=== PATIENT | female | born 1950 | race African-American/Black ===

== ENCOUNTER → 2017-03-13 | Outpatient (CLI) | payer OTHER ==
[2015-03-14 17:28] VITALS: BP 158/75
[~2017-03-13] MED LIST: AMLO5TAB4 PO; GLIM2TAB2 PO; VALS1TAB14 PO
--- NOTE | 2017-03-13 12:14 | KCIC ---
Bilateral digital screening mammograms: Reason for examination: Routine screening. Comparison is made to previous studies dated 06/08/2015 and 12/25/2011. Interpretation was made with the benefit of CAD. The skin and nipples show no abnormalities. No abnormal axillary lymph nodes are seen. The breast parenchyma shows scattered fibroglandular density. (Breast density: Category B.) There are no dominant masses, suspicious calcifications or architectural distortions. Impression: No evidence of malignancy. Recommend routine screening. BI-RADS Category 1: Negative. "Our facility is accredited by the [employer] Mammography Program." This patient's information has been entered into a reminder system for the patient to be notified with the results of her examination and a target date for the next mammogram. Electronically signed by: Lizeth Berman MD (03/13/2017 12:11 PM) [facility]
== END | disposition home or self-care (01) ==
LOC: KCIC MAMMO 10:17
PROVIDERS: ATTEND Internal Medicine
DX: Z12.31 Encounter for screening mammogram for malignant neoplasm of breast (principal)
CPT/HCPCS: G0202; 77067

== ENCOUNTER 2019-03-05 17:58 | Emergency (ER) | payer OTHER ==
[~2019-03-05] VITALS: Ht 160 cm; Wt 81.6 kg
[2019-03-05 18:15] VITALS: BP 176/74
--- NOTE | 2019-03-05 18:46 | PHYS DOC ---
Past Medical History Past Medical History: Diabetes-Type II, Hypertension Past Surgical History: Appendectomy, Cholecystectomy Alcohol Use: Rarely Drug Use: None Adult General Chief Complaint Chief Complaint: OTHER COMPLAINTS HPI HPI Patient is a 69 year old female that presents with blisters/rash on her hand and feet it's has been ongoing for week. The patient states this happened 5 years ago and never did figure out exactly what it was. The patient describes the rash as itchy. Denies any pain. Has been using creams that were giving to her last time she was here and they're not helping. Review of Systems Review of Systems Constitutional: Denies fever or chills [] Eyes: Denies change in visual acuity, redness, or eye pain [] HENT: Denies nasal congestion or sore throat [] Respiratory: Denies cough or shortness of breath [] Cardiovascular: No additional information not addressed in HPI [] GI: Denies abdominal pain, nausea, vomiting, bloody stools or diarrhea [] : Denies dysuria or hematuria [] Musculoskeletal: Denies back pain or joint pain [] Integument: Reports rash on hands and feet with small blisters. Neurologic: Denies headache, focal weakness or sensory changes [] Endocrine: Denies polyuria or polydipsia [] Complete systems were reviewed and found to be within normal limits, except as documented in this note. Allergies Allergies Allergies Coded Allergies Type Severity Reaction Last Updated Verified Sulfa (Sulfonamide Antibiotics) Allergy Intermediate RASH 04/18/14 No amoxicillin Allergy Intermediate RASH 04/18/14 No Physical Exam Physical Exam Constitutional: Well developed, well nourished, no acute distress, non-toxic appearance. [] HENT: Normocephalic, atraumatic, bilateral external ears normal, oropharynx moist, no oral exudates, nose normal. [] Eyes: PERRLA, EOMI, conjunctiva normal, no discharge. [] Neck: Normal range of motion, no tenderness, supple, no stridor. [] Cardiovascular:Heart rate regular rhythm, no murmur [] Lungs & Thorax: Bilateral breath sounds clear to auscultation [] Abdomen: Bowel sounds normal, soft, no tenderness, no masses, no pulsatile masses. [] Skin: Has macular rash on feet and hands with some blistering. Back: No tenderness, no CVA tenderness. [] Extremities: No tenderness, no cyanosis, no clubbing, ROM intact, no edema. [] Neurologic: Alert and oriented X 3, normal motor function, normal sensory function, no focal deficits noted. [] Psychologic: Affect normal, judgement normal, mood normal. [] Current Patient Data Vital Signs Vital Signs Date Time Temp Pulse Resp B/P (MAP) Pulse Ox O2 Delivery O2 Flow Rate FiO2 03/05/19 18:15 98.2 79 16 176/74 (108) 99 Room Air 98.2 EKG EKG [] Radiology/Procedures Radiology/Procedures [] Course & Med Decision Making Course & Med Decision Making Pertinent Labs and Imaging studies reviewed. (See chart for details) Unsure what this rash is. Will try Decadron and Bactroban and have follow up with Derm. Duque Disclaimer Dunia Disclaimer This electronic medical record was generated, in whole or in part, using a voice recognition dictation system. Departure Departure Impression: Primary Impression: Rash Disposition: 01 HOME, SELF-CARE Condition: STABLE Referrals: MYRA GUALLPA MD (PCP) Patient Instructions: Rash Additional Instructions: Thank you for visiting [facility]. We appreciate you trusting us with your care. If any additional problems come up don't hesitate to return to visit us. Please follow up with your primary care provider so they can plan additional care if needed and know about the problem that you had. If symptoms worsen come back to the Emergency Department. Any concerning symptoms that start such as chest pain, shortness of air, weakness or numbness on one side of the body, running high fevers or any other concerning symptoms return to the ER. Please use Bactroban and see if this helps. Follow up with Dermatology. Scripts Mupirocin (MUPIROCIN OINTMENT) 22 Gm Oint...g. 1 ANNA TP TID for WOUND CARE, #1 TUBE Prov: MYRA CASSIDY APRN 03/05/19 MRYA CASSIDY APRN Mar 05, 2019 18:46
[2019-03-05] MEDS ORDERED: DEXAMETHASONE 4 MG TABLET PO STA (19:28)
[2019-03-05] MEDS ORDERED: MUPI22OI2 TP (19:30)
== END 2019-03-05 19:40 | disposition home or self-care (01) ==
LOC: ER 17:58
DX: S60.522A Blister (nonthermal) of left hand, initial encounter (principal); S60.521A Blister (nonthermal) of right hand, initial encounter; S90.822A Blister (nonthermal), left foot, initial encounter; S90.821A Blister (nonthermal), right foot, initial encounter; E11.9 Type 2 diabetes mellitus without complications; I10 Essential (primary) hypertension; Z90.89 Acquired absence of other organs; Z90.49 Acquired absence of other specified parts of digestive tract; Z88.2 Allergy status to sulfonamides; Z88.1 Allergy status to other antibiotic agents; X58.XXXA Exposure to other specified factors, initial encounter; Y93.89 Activity, other specified; Y92.89 Other specified places as the place of occurrence of the external cause; Y99.8 Other external cause status
CPT/HCPCS: 99283; J8540

== ENCOUNTER 2019-04-27 12:39 | Emergency (ER) | payer OTHER ==
[~2019-04-27] VITALS: Ht 165.1 cm; Wt 81.6 kg
[~2019-04-27 12:39] MED LIST changes: -GLIM2TAB2 PO; +GLIM2TAB3 PO; +MUPI22OI2 TP
[2019-04-27 13:00] VITALS: BP 148/71
[2019-04-27] MEDS ORDERED: ACETAMINOPHEN 325 MG TABLET. PO ONE (13:15)
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
== END 2019-04-27 14:01 | disposition home or self-care (01) ==
LOC: ER 12:39
DX: R51 Headache (principal); E11.9 Type 2 diabetes mellitus without complications; I10 Essential (primary) hypertension; Z88.2 Allergy status to sulfonamides; Z88.1 Allergy status to other antibiotic agents; V59.69XA Unspecified occupant of pick-up truck or van injured in collision with other motor vehicles in traffic accident, initial encounter; Y93.89 Activity, other specified; Y92.488 Other paved roadways as the place of occurrence of the external cause; Y99.8 Other external cause status
CPT/HCPCS: 70450; 99284-25

== ENCOUNTER 2019-08-12 23:35 | Emergency (ER) | payer OTHER ==
[~2019-08-12 23:35] MED LIST changes: -GLIM2TAB3 PO; +GLIM2TAB7 PO
[2019-08-12 23:54] VITALS: BP 150/72
[2019-08-13] MEDS ORDERED: METH4TAB2 PO (00:41)
[2019-08-13] MEDS ORDERED: DICL100G18 TP (00:41)
[2019-08-13] MEDS ORDERED: CYCL10TA2 PO (00:41)
[2019-08-13] MEDS ORDERED: HYDR-3164 PO (00:41)
--- NOTE | 2019-08-13 00:41 | PHYS DOC ---
Past Medical History Past Medical History: Diabetes-Type II, High Cholesterol, Hypertension Past Surgical History: Appendectomy, Cholecystectomy Alcohol Use: Rarely Drug Use: None Adult General Chief Complaint Chief Complaint: Neck Pain HPI HPI Patient is a 69 year old female presenting to the ED today complaining of 10 out of 10 left lateral neck pain that began on Thursday this week. Patient reports pain began on the right hip the day before, she reports she went to bed and slept wrong and woke up the next morning with left neck pain. She reports the pain is worse on rotation of the neck to the left side, she described the pain as "crocked neck". She states she's been using heating pad, Aleve, naproxen, Tylenol, no relief. Review of Systems Review of Systems Constitutional: Denies fever or chills [] Eyes: Denies change in visual acuity, redness, or eye pain [] HENT: Denies nasal congestion or sore throat [] Respiratory: Denies cough or shortness of breath [] Cardiovascular: No additional information not addressed in HPI [] GI: Denies abdominal pain, nausea, vomiting, bloody stools or diarrhea [] : Denies dysuria or hematuria [] Musculoskeletal: Reports left lateral neck pain. Denies back pain or joint pain [] Integument: Denies rash or skin lesions [] Neurologic: Denies headache, focal weakness or sensory changes [] All other systems were reviewed and found to be within normal limits, except as documented in this note. Allergies Allergies Allergies Coded Allergies Type Severity Reaction Last Updated Verified Sulfa (Sulfonamide Antibiotics) Allergy Intermediate RASH 04/18/14 No amoxicillin Allergy Intermediate RASH 04/18/14 No Physical Exam Physical Exam Constitutional: Well developed, well nourished, no acute distress, non-toxic appearance. [] HENT: Normocephalic, atraumatic, bilateral external ears normal, oropharynx moist, no oral exudates, nose normal. [] Eyes: PERRLA, EOMI, conjunctiva normal, no discharge. [] Neck: Cervical spine with no obvious deformity. Limited range of motion on rotation of the neck to the left side and slightly Limited range of motion to the right side of the neck. Slight paraspinal muscle tenderness to the left lateral cervical spine, no midline cervical spine tenderness. Supple, no stridor. [] Cardiovascular:Heart rate regular rhythm, no murmur [] Lungs & Thorax: Bilateral breath sounds clear to auscultation [] Abdomen: Bowel sounds normal, soft, no tenderness, no masses, no pulsatile masses. [] Skin: Warm, dry, no erythema, no rash. [] Back: No tenderness, no CVA tenderness. [] Extremities: No tenderness, no cyanosis, no clubbing, ROM intact, no edema. [] Neurologic: Alert and oriented X 3, normal motor function, normal sensory function, no focal deficits noted. [] Psychologic: Affect normal, judgement normal, mood normal. [] Current Patient Data Vital Signs Vital Signs Date Time Temp Pulse Resp B/P (MAP) Pulse Ox O2 Delivery O2 Flow Rate FiO2 08/12/19 23:54 98.3 99 20 150/72 (98) 100 Room Air 98.3 EKG EKG [] Radiology/Procedures Radiology/Procedures [] Course & Med Decision Making Course & Med Decision Making Pertinent Labs and Imaging studies reviewed. (See chart for details) This is a 69-year-old female patient who presents to the ED today with neck pain consistent of torticollis. We discussed methods of managing it. Discharged to home. Follow-up with primary care doctor in 1-2 weeks. Dragon Disclaimer Dragon Disclaimer This electronic medical record was generated, in whole or in part, using a voice recognition dictation system. Departure Departure Impression: Primary Impression: Acute torticollis Disposition: 01 HOME, SELF-CARE Condition: STABLE Referrals: MYRA GUALLPA MD (PCP) follow up in 1-2 weeks Patient Instructions: Torticollis, Acute Additional Instructions: You were evaluated in the emergency room with neck pain. Continue using heating pad. Please take the prescribed medications as ordered. Follow-up with your doctor in the course of next week. Scripts Diclofenac Sodium (VOLTAREN) 100 Gm Gel..gram. 1 GM TP QID for pain for 30 Days, #1 EACH 0 Refills apply to affected area(s) Prov: MUTUNGALUKAS SOLAR WATER HEATER INSTALLER 08/13/19 Methylprednisolone (MEDROL) 4 Mg Tab.ds.pk 1 PKG PO UD, #1 PKG Prov: MUTUNGA,LUKAS SOLAR WATER HEATER INSTALLER 20 Cyclobenzaprine Hcl (CYCLOBENZAPRINE HCL) 10 Mg Tablet 1 TAB PO TID, #30 TAB Prov: MUTUNGA,LUKAS SOLAR WATER HEATER INSTALLER 08/13/19 Hydrocodone/Apap 5-325 (NORCO 5-325 TABLET) 1 Each Tablet 1 TAB PO Q6HRS PRN for PAIN, #20 TAB Prov: LUKAS DECKER APRN 08/13/19 LUKAS DECKER APRN Aug 13, 2019 00:41
== END 2019-08-13 00:47 | disposition home or self-care (01) ==
LOC: ER 23:35
DX: M43.6 Torticollis (principal); E11.9 Type 2 diabetes mellitus without complications; E78.00 Pure hypercholesterolemia, unspecified; I10 Essential (primary) hypertension; Z88.1 Allergy status to other antibiotic agents; Z88.2 Allergy status to sulfonamides
CPT/HCPCS: 99283

== ENCOUNTER 2021-08-02 14:47 | Inpatient (IN) | payer OTHER ==
[~2021-08-02] VITALS: Ht 165.1 cm; Wt 86.0 kg
[~2021-08-02 14:47] MED LIST changes: +CYCL10TA19 PO; +DICL100G54 TP; +HYDR-3164 PO; +METH4TAB2 PO
[2021-08-02 18:34] LABS: BASO % 0 % (0-3); EOS % 0 % (0-3); HEMATOCRIT 38.5 % (36.0-47.0); LYMPH # 1.3 x10^3/uL (1.0-4.8); LYMPH % 20 % (24-48); MEAN CORPUSCULAR HEMOGLOBIN 29 pg (25-35); MEAN CORPUSCULAR HGB CONC 34 g/dL (31-37); MEAN CORPUSCULAR VOLUME 87 fL (79-100); MONO # 0.6 x10^3/uL (0.0-1.1); MONO % 9 % (0-9); NEUT # 4.4 x10^3/uL (1.8-7.7); NEUT % 70 % (31-73); PLATELET COUNT 202 x10^3/uL (140-400); RED BLOOD COUNT 4.44 x10^6/uL (3.50-5.40); WHITE BLOOD COUNT 6.3 x10^3/uL (4.0-11.0)
[2021-08-02 18:53] LABS: CALCIUM 8.3 mg/dL (8.5-10.1); CREATININE 0.8 mg/dL (0.6-1.0); GFR 85.3; POTASSIUM 4.1 mmol/L (3.5-5.1)
[2021-08-02 18:59] LABS: ALBUMIN 2.9 g/dL (3.4-5.0); ALBUMIN/GLOBULIN RATIO 0.6 (1.0-1.7); TOTAL BILIRUBIN 0.5 mg/dL (0.2-1.0); TOTAL PROTEIN 7.8 g/dL (6.4-8.2)
--- NOTE | 2021-08-02 19:01 | RAD ---
XR CHEST 1V History: Reason: Cough, congestion, near syncope / Spl. Instructions: / History: Comparison: April 18, 2014 Findings: Mild diffuse reticular interstitial thickening. No pleural effusion. No pneumothorax. Normal heart si ze. Calcified mediastinal and hilar lymph nodes as well as calcified pulmonary nodules, likely prior granulomatous disease. Impression: 1. Mild diffuse reticular interstitial thickening, may represent chronic interstitial changes althou gh in the acute setting can be seen with early pulmonary edema or infection. Electronically signed by: Damon Feng DO (08/02/2021 6:59 PM) [facility]
--- NOTE | 2021-08-02 19:14 | EKG ---
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
--- NOTE | 2021-08-02 19:51 | PHYS DOC ---
Past Medical History Past Medical History: Diabetes-Type II, High Cholesterol, Hypertension Past Surgical History: Appendectomy, Cholecystectomy Smoking Status: Former Smoker Alcohol Use: None Drug Use: None General Adult EDM: Chief Complaint: SHORTNESS OF BREATH HPI: HPI: Patient is a 71-year-old female who presents to the emergency department with a chief complaint of a dizzy spell sudden onset at approximately 10 AM today, patient states she felt like she was going to pass out but did not, patient reports this lasted under a minute, patient reports she drank some water and laid down and symptoms resolved immediately. Patient denies shortness of breath or chest pains or heart palpitations, denies hitting her head, denies chest congestion or nasal congestion, recent fever or chills, denies visual disturbances, reports that she had a similar episode several years ago and came to the ER and was given a liter of fluid after she was told she was dehydrated. Patient reports her tongue feels really dry and she feels as if she is dehydrated. Patient denies dysuria, abdominal pain, nausea, vomiting or diarrhea. Patient denies seeing blood in her stool or in her urine. Patient reports she has a history of hypercholesterol, type 2 diabetes, and hypertension however was taken off her hypertension and type 2 diabetes medications by her primary care doctor stating she did not need to take them any longer, patient reports she only takes pravastatin at home. Denies allergies to medications. Patient denies other physical complaints or physical concerns. Review of Systems: Review of Systems: 14 body systems of review of systems have been reviewed. See HPI for pertinent positives and negative responses, otherwise all other systems are negative, nonpertinent or noncontributory. Constitutional: Negative except as outlined in HPI above. Skin: Negative except as outlined in HPI above. Eyes: Negative except as outlined in HPI above. HENT: Negative except as outlined in HPI above. Respiratory: Negative except as outlined in HPI above. Cardiovascular: Negative except as outlined in HPI above. GI: Negative except as outlined in HPI above. : Negative except as outlined in HPI above. Musculoskeletal: Negative except as outlined in HPI above. Integument: Negative except as outlined in HPI above. Neurologic: Negative except as outlined in HPI above. Endocrine: Negative except as outlined in HPI above. Lymphatic: Negative except as outlined in HPI above. Psychiatric: Negative except as outlined in HPI above. Heart Score: C/O Chest Pain: No Risk Factors: Risk Factors: DM, Current or recent (<one month) smoker, HTN, HLP, family history of CAD, obesity. Risk Scores: Score 0 - 3: 2.5% MACE over next 6 weeks - Discharge Home Score 4 - 6: 20.3% MACE over next 6 weeks - Admit for Clinical Observation Score 7 - 10: 72.7% MACE over next 6 weeks - Early Invasive Strategies Allergies: Allergies: Allergies Coded Allergies Type Severity Reaction Last Updated Verified Sulfa (Sulfonamide Antibiotics) Allergy Intermediate RASH 04/18/14 No amoxicillin Allergy Intermediate RASH 04/18/14 No Physical Exam: PE: Constitutional: Well developed, well nourished, no acute distress, non-toxic appearance. 71-year-old female in no apparent distress. HENT: Normocephalic, atraumatic. Oral mucosa sticky, oropharynx nonerythematous, no deep tissue infectious process appreciated. Bilateral TMs within normal limits, bilateral nasal turbinates patent. Eyes: Conjunctiva normal, no discharge. Neck: Normal range of motion, no stridor. Cardiovascular: No cyanosis appreciated, distal cap refill less than 2 seconds. Heart sounds S1, S2 to auscultation. Lungs & Thorax: Patient is in no respiratory distress, no audible adventitious lung sounds appreciated. Lung sounds clear to auscultate all lung oneill. Abdomen: Nontender, no abnormalities noted. Skin: Warm, dry, no erythema, no rash. Back: No tenderness, no deformities. Extremities: No tenderness, no cyanosis, no clubbing, ROM intact, no edema. +2 dorsalis pedis pulses bilaterally, distal cap refill less than 2 seconds. Neurologic: Alert and oriented X 3, normal motor function, normal sensory function, no focal deficits noted. Psychologic: Affect normal, judgement normal, mood normal. Current Patient Data: Labs: Laboratory Tests Test 08/02/21 18:15 White Blood Count 6.3 x10^3/uL (4.0-11.0) Red Blood Count 4.44 x10^6/uL (3.50-5.40) Hemoglobin 13.0 g/dL (12.0-15.5) Hematocrit 38.5 % (36.0-47.0) Mean Corpuscular Volume 87 fL (79-100) Mean Corpuscular Hemoglobin 29 pg (25-35) Mean Corpuscular Hemoglobin Concent 34 g/dL (31-37) Red Cell Distribution Width 15.0 % (11.5-14.5) H Platelet Count 202 x10^3/uL (140-400) Neutrophils (%) (Auto) 70 % (31-73) Lymphocytes (%) (Auto) 20 % (24-48) L Monocytes (%) (Auto) 9 % (0-9) Eosinophils (%) (Auto) 0 % (0-3) Basophils (%) (Auto) 0 % (0-3) Neutrophils # (Auto) 4.4 x10^3/uL (1.8-7.7) Lymphocytes # (Auto) 1.3 x10^3/uL (1.0-4.8) Monocytes # (Auto) 0.6 x10^3/uL (0.0-1.1) Eosinophils # (Auto) 0.0 x10^3/uL (0.0-0.7) Basophils # (Auto) 0.0 x10^3/uL (0.0-0.2) Sodium Level 138 mmol/L (136-145) Potassium Level 4.1 mmol/L (3.5-5.1) Chloride Level 99 mmol/L (98-107) Carbon Dioxide Level 29 mmol/L (21-32) Anion Gap 10 (6-14) Blood Urea Nitrogen 10 mg/dL (7-20) Creatinine 0.8 mg/dL (0.6-1.0) Estimated GFR (Cockcroft-Gault) 85.3 BUN/Creatinine Ratio 13 (6-20) Glucose Level 117 mg/dL (70-99) H Calcium Level 8.3 mg/dL (8.5-10.1) L Total Bilirubin 0.5 mg/dL (0.2-1.0) Aspartate Amino Transferase (AST) 65 U/L (15-37) H Alanine Aminotransferase (ALT) 71 U/L (14-59) H Alkaline Phosphatase 68 U/L (46-116) Troponin I High Sensitivity 10 ng/L (4-50) ZX-Ocx-T-Type Natriuretic Peptide 442 pg/mL (0-124) H Total Protein 7.8 g/dL (6.4-8.2) Albumin 2.9 g/dL (3.4-5.0) L Albumin/Globulin Ratio 0.6 (1.0-1.7) L Laboratory Tests 08/02/21 18:15 Laboratory Tests 08/02/21 18:15 Vital Signs: Vital Signs Date Time Temp Pulse Resp B/P (MAP) Pulse Ox O2 Delivery O2 Flow Rate FiO2 08/02/21 18:03 98.7 86 16 158/81 (106) 98 Room Air 98.7 EKG: EKG: EKG performed at 1909 by ED nursing staff shows a normal sinus rhythm without ectopy heart rate 78 bpm, [place] interval point 144, QTc interval 0.432, no acute STEMI, no ACS, no acute ischemia appreciated, EKG interpreted by ED attending physician Dr. Riley. Radiology/Procedures: Radiology/Procedures: REASON: Cough, congestion, near syncope PROCEDURE: CHEST AP ONLY XR CHEST 1V History: Reason: Cough, congestion, near syncope / Spl. Instructions: / History: Comparison: April 18, 2014 Findings: Mild diffuse reticular interstitial thickening. No pleural effusion. No pneumothorax. Normal heart size. Calcified mediastinal and hilar lymph nodes as well as calcified pulmonary nodules, likely prior granulomatous disease. Impression: 1. Mild diffuse reticular interstitial thickening, may represent chronic interstitial changes although in the acute setting can be seen with early pulmonary edema or infection. Electronically signed by: Damon Feng DO (08/02/2021 6:59 PM) [facility] Course & Med Decision Making: Course & Med Decision Making Pertinent Labs and Imaging studies reviewed. (See chart for details) 71-year-old female, vital signs reviewed, presents emergency room concerning near syncopal episode this morning. Patient's physical examination concerning for dehydration. Related to patient's near syncopal episode complaint, will order EKG, troponin I, NT proBNP, CBC, CMP. Urinalysis assay. Orthostatic blood pressures. Patient is orthostatic per ED nurses reported orthostatic blood pressures and pulse. Will give 1 L normal saline IV. Urinalysis assay pending. Patient's chest x-ray concerning for pulmonary edema versus infectious process, patient is afebrile, is not hypoxic however O2 sat is between 93 and 94%, the patient does not appear toxic, CBC not suggestive of infectious process, this is most likely a pulmonary edema presentation. [place] syncope rule resulted not low risk for serious outcome within 7 days, discussed findings with patient, recommended admission to the hospital. Patient did have echo from 7 years ago that showed LVH, patient may benefit from cardiology consult and repeat echocardiogram. Patient is amenable to ED admission planning. Called and discussed patient case and ED work-up with patient's primary care physician Dr. Egan who agrees patient's ED case warrants admission to the t elemetry unit. Consult cardiology for tomorrow morning, start patient on all home medications, reviewed home medications with Dr. Egan, patient is only on pravastatin, Dr. Egan recommended atorvastatin while in the hospital. 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 [employer] Disclaimer: [employer] Disclaimer: This electronic medical record was generated, in whole or in part, using a voice recognition dictation system. Departure Departure Impression: Primary Impression: Pulmonary edema Qualified Codes: J81.0 - Acute pulmonary edema Additional Impressions: Near syncope Orthostatic hypotension Disposition: ADMITTED INPATIENT Admitting Physician: Myra Egan (Admit to telemetry unit, consult cardiology.) Condition: GUARDED Referrals: MYRA EGAN MD (PCP) MYRA NEVES APRN Aug 02, 2021 19:51
[2021-08-02] MEDS ORDERED: IV NORMAL SALINE 1000ML BAG 1,000 ML IV ONE (20:00)
[2021-08-02] MEDS: ATORVASTATIN CALCIUM 20 MG TABLET PO SCH (21:17)
[2021-08-02 23:16] LABS: BILIRUBIN,URINE NEGATIVE (NEG); CLARITY,URINE CLEAR; COLOR,URINE YELLOW; NITRITE,URINE NEGATIVE (NEG); PROTEIN,URINE 30 mg/dL (NEG-TRACE); UROBILINOGEN,URINE 0.2 mg/dL (0.2 mg/dL)
[2021-08-02 23:21] LABS: RBC,URINE OCC /HPF (0-2)
[2021-08-02 23:22] LABS: BACTERIA,URINE 0 /HPF (0-FEW)
[2021-08-03 03:00] VITALS: BP 133/57
[2021-08-03] MEDS ORDERED: PRAV80TA2 PO (05:39)
[2021-08-03 07:00] VITALS: BP 137/60
[2021-08-03] MEDS ORDERED: ACETAMINOPHEN 325 MG TABLET. PO PRN (10:30)
[2021-08-03] MEDS ORDERED: AZITHROMYCIN 250 MG TABLET. PO ONE (10:30)
--- NOTE | 2021-08-03 10:41 | PDOC ---
Provider Note Date of Service: DATE: 08/03/21 TIME: 10:39 Provider Note history and physical dictated # [id number] Justifications for Admission Other Justification MYRA GUALLPA MD Aug 03, 2021 10:41
--- NOTE | 2021-08-03 10:54 | PDOC2 ---
CONSULT Date of Consult Date of Consult DATE: 08/03/21 TIME: 10:54 Reason for Consult Reason for Consult: Near syncope Referring Physician Referring Physician: Dr. Egan Identification/Chief Complaint Chief Complaint Near syncope Source Source: Chart review, Patient History of Present Illness Reason for Visit: 71-year-old female apparently had not been feeling well for the past 2 days secondary to 'cold' and was pretty much bedbound, not eating well or drinking well. Yesterday when she got up to go use the bathroom, she felt dizzy and nearly passed out. She denied any loss of consciousness as such. She denied any chest pain, orthopnea/PND or palpitations. She denied any prior cardiac history. Past Medical History Past Medical History Hyperlipidemia Diabetes mellitus type 2 Hypertension Cervical cancer s/p radiation therapy Past Surgical History Past Surgical History Appendectomy Cholecystectomy Family History Family History Hypertension Social History Social History Patient denied any smoking, alcohol or drug use Current Problem List Problem List Problems Medical Problems: (1) Near syncope Status: Acute (2) Orthostatic hypotension Status: Acute (3) Pulmonary edema Status: Acute Current Medications Current Medications Current Medications Sodium Chloride 1,000 ml @ 1,000 mls/hr 1X ONCE IV Last administered on 08/02/21at 20:42; Start 08/02/21 at 20:00; Stop 08/02/21 at 20:59; Status DC Atorvastatin Calcium (Lipitor) 20 mg QHS PO Last administered on 08/02/21at 21:17; Start 08/02/21 at 21:00 Guaifenesin (Robitussin Dm) 10 ml QID PO ; Start 08/03/21 at 13:00 Azithromycin (Zithromax) 500 mg 1X ONCE PO ; Start 08/03/21 at 10:30; Stop 08/03/21 at 10:31; Status DC Azithromycin (Zithromax) 250 mg DAILY PO ; Start 08/04/21 at 09:00; Stop 08/07/21 at 09:01 Acetaminophen (Tylenol) 650 mg PRN Q6HRS PRN PO MILD PAIN / TEMP > 100.3'F; Start 08/03/21 at 10:30 Enoxaparin Sodium (Lovenox 40mg Syringe) 40 mg Q24H SQ ; Start 08/03/21 at 10:30 Sodium Chloride 1,000 ml @ 60 mls/hr [id number] IV ; Start 08/03/21 at 10:45 Active Scripts Active Reported Pravastatin Sodium 80 Mg Tablet 1 Tab PO DAILY Allergies Allergies: Coded Allergies: Sulfa (Sulfonamide Antibiotics) (Unverified Allergy, Intermediate, RASH, 04/18/14) amoxicillin (Unverified Allergy, Intermediate, RASH, 04/18/14) ROS General: YES: Fatigue, Malaise, Appetite (Lack of) Eyes: No Loss of vision Respiratory: No: Cough, Hemoptysis Cardiovascular: No Chest Pain Gastrointestinal: No Vomiting Genitourinary: No Hematuria Neurological: No Seizures Skin: No Rash Physical Exam General: Alert, Oriented X3 HEENT: Atraumatic Lungs: Clear to auscultation Heart: Regular rate Abdomen: Soft Extremities: No edema Neuro: Normal speech Psych/Mental Status: Mood NL Vitals VITALS Vital Signs Date Time Temp Pulse Resp B/P (MAP) Pulse Ox O2 Delivery O2 Flow Rate FiO2 08/03/21 07:00 98.9 80 18 137/60 (85) 93 Nasal Cannula 2.0 98.9 Labs Labs Laboratory Tests Test 08/02/21 18:15 08/02/21 23:10 08/03/21 10:29 White Blood Count 6.3 x10^3/uL (4.0-11.0) Red Blood Count 4.44 x10^6/uL (3.50-5.40) Hemoglobin 13.0 g/dL (12.0-15.5) Hematocrit 38.5 % (36.0-47.0) Mean Corpuscular Volume 87 fL (79-100) Mean Corpuscular Hemoglobin 29 pg (25-35) Mean Corpuscular Hemoglobin Concent 34 g/dL (31-37) Red Cell Distribution Width 15.0 % (11.5-14.5) Platelet Count 202 x10^3/uL (140-400) Neutrophils (%) (Auto) 70 % (31-73) Lymphocytes (%) (Auto) 20 % (24-48) Monocytes (%) (Auto) 9 % (0-9) Eosinophils (%) (Auto) 0 % (0-3) Basophils (%) (Auto) 0 % (0-3) Neutrophils # (Auto) 4.4 x10^3/uL (1.8-7.7) Lymphocytes # (Auto) 1.3 x10^3/uL (1.0-4.8) Monocytes # (Auto) 0.6 x10^3/uL (0.0-1.1) Eosinophils # (Auto) 0.0 x10^3/uL (0.0-0.7) Basophils # (Auto) 0.0 x10^3/uL (0.0-0.2) Sodium Level 138 mmol/L (136-145) Potassium Level 4.1 mmol/L (3.5-5.1) Chloride Level 99 mmol/L (98-107) Carbon Dioxide Level 29 mmol/L (21-32) Anion Gap 10 (6-14) Blood Urea Nitrogen 10 mg/dL (7-20) Creatinine 0.8 mg/dL (0.6-1.0) Estimated GFR (Cockcroft-Gault) 85.3 BUN/Creatinine Ratio 13 (6-20) Glucose Level 117 mg/dL (70-99) Calcium Level 8.3 mg/dL (8.5-10.1) Total Bilirubin 0.5 mg/dL (0.2-1.0) Aspartate Amino Transf (AST/SGOT) 65 U/L (15-37) Alanine Aminotransferase (ALT/SGPT) 71 U/L (14-59) Alkaline Phosphatase 68 U/L (46-116) Troponin I High Sensitivity 10 ng/L (4-50) IM-Pge-J-Type Natriuretic Peptide 442 pg/mL (0-124) Total Protein 7.8 g/dL (6.4-8.2) Albumin 2.9 g/dL (3.4-5.0) Albumin/Globulin Ratio 0.6 (1.0-1.7) Urine Collection Type Unknown Urine Color Yellow Urine Clarity Clear Urine pH 6.0 (<5.0-8.0) Urine Specific [employer] 1.015 (1.000-1.030) Urine Protein 30 mg/dL (NEG-TRACE) Urine Glucose (UA) Negative mg/dL (NEG) Urine Ketones (Stick) 15 mg/dL (NEG) Urine Blood Negative (NEG) Urine Nitrite Negative (NEG) Urine Bilirubin Negative (NEG) Urine Urobilinogen Dipstick 0.2 mg/dL (0.2 mg/dL) Urine Leukocyte Esterase Small (NEG) Urine RBC Occ /HPF (0-2) Urine WBC 5-10 /HPF (0-4) Urine Squamous Epithelial Cells Few /LPF Urine Bacteria 0 /HPF (0-FEW) Urine Mucus Slight /LPF Glucose (Fingerstick) 152 mg/dL (70-99) Laboratory Tests Test 08/02/21 18:15 08/02/21 23:10 08/03/21 10:29 White Blood Count 6.3 x10^3/uL (4.0-11.0) Red Blood Count 4.44 x10^6/uL (3.50-5.40) Hemoglobin 13.0 g/dL (12.0-15.5) Hematocrit 38.5 % (36.0-47.0) Mean Corpuscular Volume 87 fL (79-100) Mean Corpuscular Hemoglobin 29 pg (25-35) Mean Corpuscular Hemoglobin Concent 34 g/dL (31-37) Red Cell Distribution Width 15.0 % (11.5-14.5) Platelet Count 202 x10^3/uL (140-400) Neutrophils (%) (Auto) 70 % (31-73) Lymphocytes (%) (Auto) 20 % (24-48) Monocytes (%) (Auto) 9 % (0-9) Eosinophils (%) (Auto) 0 % (0-3) Basophils (%) (Auto) 0 % (0-3) Neutrophils # (Auto) 4.4 x10^3/uL (1.8-7.7) Lymphocytes # (Auto) 1.3 x10^3/uL (1.0-4.8) Monocytes # (Auto) 0.6 x10^3/uL (0.0-1.1) Eosinophils # (Auto) 0.0 x10^3/uL (0.0-0.7) Basophils # (Auto) 0.0 x10^3/uL (0.0-0.2) Sodium Level 138 mmol/L (136-145) Potassium Level 4.1 mmol/L (3.5-5.1) Chloride Level 99 mmol/L (98-107) Carbon Dioxide Level 29 mmol/L (21-32) Anion Gap 10 (6-14) Blood Urea Nitrogen 10 mg/dL (7-20) Creatinine 0.8 mg/dL (0.6-1.0) Estimated GFR (Cockcroft-Gault) 85.3 BUN/Creatinine Ratio 13 (6-20) Glucose Level 117 mg/dL (70-99) Calcium Level 8.3 mg/dL (8.5-10.1) Total Bilirubin 0.5 mg/dL (0.2-1.0) Aspartate Amino Transf (AST/SGOT) 65 U/L (15-37) Alanine Aminotransferase (ALT/SGPT) 71 U/L (14-59) Alkaline Phosphatase 68 U/L (46-116) Troponin I High Sensitivity 10 ng/L (4-50) WF-Jrm-U-Type Natriuretic Peptide 442 pg/mL (0-124) Total Protein 7.8 g/dL (6.4-8.2) Albumin 2.9 g/dL (3.4-5.0) Albumin/Globulin Ratio 0.6 (1.0-1.7) Urine Collection Type Unknown Urine Color Yellow Urine Clarity Clear Urine pH 6.0 (<5.0-8.0) Urine Specific [employer] 1.015 (1.000-1.030) Urine Protein 30 mg/dL (NEG-TRACE) Urine Glucose (UA) Negative mg/dL (NEG) Urine Ketones (Stick) 15 mg/dL (NEG) Urine Blood Negative (NEG) Urine Nitrite Negative (NEG) Urine Bilirubin Negative (NEG) Urine Urobilinogen Dipstick 0.2 mg/dL (0.2 mg/dL) Urine Leukocyte Esterase Small (NEG) Urine RBC Occ /HPF (0-2) Urine WBC 5-10 /HPF (0-4) Urine Squamous Epithelial Cells Few /LPF Urine Bacteria 0 /HPF (0-FEW) Urine Mucus Slight /LPF Glucose (Fingerstick) 152 mg/dL (70-99) Assessment/Plan Assessment/Plan 1. Near syncope: Most probably secondary to hypovolemia. BNP level slightly elevated but chest x-ray showed chronic interstitial changes. Doubt CHF. EKG showed sinus rhythm without acute changes. Cardiac enzymes negative. Recommend intravenous hydration. 2. Acute bronchitis: Continue antibiotics. Pulmonary team consulted. 3. Hypertension: Controlled 4. Hyperlipidemia: Statin therapy 5. Diabetes mellitus type 2 treat per IM Thank you for your consultation AGATA HERNANDEZ MD Aug 03, 2021 10:54
[2021-08-03 11:00] VITALS: BP 139/74
--- NOTE | 2021-08-03 12:07 | HP ---
DATE OF SERVICE: 08/03/2021 ADMIT DATE: 08/02/2021 LOCATION: The patient is in room 504. HISTORY OF PRESENT ILLNESS: The patient is a 71-year-old -[place] female with history of diabetes mellitus type 2, treated with diet; hypertension and hyperlipidemia who takes pravastatin, noted the onset of near syncope while she was in the kitchen, lasting less than a minute. She did not faint, but she felt like she was going to. She denies any chest pain, shortness of breath or palpitations prior to it. She apparently had an episode like this in the past, perhaps years ago and was dehydrated when she went to the Emergency Room. It resolved with IV hydration. The patient has also had a cough for about a couple of weeks, the cough with clear sputum. It keeps her up at night, coughing. She denies any hemoptysis. The patient had a chest x-ray which showed some interstitial disease, which could be chronic. She had a BNP that was slightly above 440. She is admitted to the hospital for further evaluation and treatment of her near syncope. ALLERGIES AND INTOLERANCE: TO SULFA AND AMOXICILLIN. MEDICATIONS: Include pravastatin, she does not know the dose of. This is dosed on the chart, it says 80 mg at bedtime, but I am not sure, but she has been started on atorvastatin since pravastatin is not on the formulary. PAST HISTORY: Significant for diabetes mellitus. Apparently, she took glimepiride in the past. Her blood sugars were under good control. That was recently stopped. She also has a history of hypertension, but her blood pressure has been under good control without any medication. She has hyperlipidemia, treated with pravastatin. She also has a history of an appendectomy, cholecystectomy, cervical cancer treated with radiation therapy. She denies any history of myocardial infarction, cerebrovascular accident, congestive heart failure, peptic ulcer disease, asthma, kidney stones or bleeding disorders. SOCIAL HISTORY: She does not drink alcohol, nor she smoke cigarettes. She is . FAMILY HISTORY: Noncontributory. REVIEW OF SYSTEMS: GENERAL: She denies any fever, chills or sweats. CARDIOVASCULAR: No chest pain. PULMONARY: She has got the cough. GASTROINTESTINAL: No diarrhea. ENDOCRINE: Diabetes. SKIN: No rashes. Rest of review of systems reviewed and are negative except as stated in history of present illness. PHYSICAL EXAMINATION: VITAL SIGNS: Temperature is 98.9 degrees, heart rate is regular at 80, respiratory rate 18, blood pressure 137/60, oxygen saturation 93% on 2 liters per nasal cannula. HEENT: Eyes, gaze is conjugate. Mouth: Tongue is midline. NECK: There is no cervical lymphadenopathy or thyroid enlargement. HEART: Reveals an S1, S2. There is no S3 or murmur. LUNGS: Reveal few scattered rhonchi. ABDOMEN: Soft with no hepatosplenomegaly, masses or tenderness. EXTREMITIES: Lower extremities without edema. Both feet are warm. Pedal pulses present. NEUROLOGIC: Shows no facial weakness. 5/5 bilateral hand color checker, able to dorsi and plantar flexion of feet, bend her knees. SKIN: No rashes. LABORATORY DATA: White count was 6.3, hemoglobin 13, platelet count 203,000, 70 polys and 20 lymphocytes. Sodium 138, potassium 4.1, BUN 10, creatinine 0.8, calcium was 8.3, blood sugar 117, SGOT of 65, SGPT of 71, alkaline phosphatase, total bilirubin normal. The troponin level was 10 and the proBNP was 442. The albumin level was 2.9. Urinalysis showed 5-10 white cells and occasional red blood cell. EKG showed a sinus rhythm. No acute change per the ER doctor note. She had a chest x-ray done, which showed mild diffuse reticular interstitial thickening. ASSESSMENT: 1. Near syncopal episode. 2. Acute bronchitis. 3. Diabetes mellitus type 2. 4. Hypertension. 5. Hyperlipidemia. 6. Mild pyuria. 7. Severe protein calorie malnutrition. PLAN: At this time is to consult Dr. Griffith for Cardiology. We will consult Dr. Alexander for Pulmonary, who started on some Zithromax for cough and Robitussin-DM q.i.d. We will get an echocardiogram. She may need to have a stress test too, defer that to Cardiology. We will also repeat her labs tomorrow. Get hemoglobin A1c, lipid profile. Order an echocardiogram. We will put her on Lovenox for DVT prophylaxis. She will be seen by Dr. Alexander and Pulmonary consultation also. I will also put her on telemetry. ANN-MARIE/RUBA DR: Anai TID: [id number]
[2021-08-03] MEDS: guaiFENesin DM 200MG/20MG 10 ML SYRUP PO SCH ×3 (12:12→21:51)
[2021-08-03] MEDS: ENOXAPARIN 40 MG/0.4 ML SYRINGE. SQ SCH (12:14)
[2021-08-03] MEDS: IV 1/2 NORMAL SALINE 1,000 ML IV SCH (12:26)
[2021-08-03 15:00] VITALS: BP 136/52
[2021-08-03 19:00] VITALS: BP 153/62
[2021-08-03] MEDS: ATORVASTATIN CALCIUM 20 MG TABLET PO SCH (21:51)
[2021-08-03 23:00] VITALS: BP 149/36
[2021-08-04 03:00] VITALS: BP 139/94
[2021-08-04] MEDS: IV 1/2 NORMAL SALINE 1,000 ML IV SCH ×2 (05:14→21:13)
[2021-08-04 07:00] VITALS: BP 148/65
--- NOTE | 2021-08-04 07:46 | CONS ---
DATE OF CONSULTATION: 08/04/2021 REASON FOR CONSULTATION: I was asked to see this 71-year-old lady for acute bronchitis. HISTORY OF PRESENT ILLNESS: She has history of [id number] smoking. She is not diagnosed with any lung disease. She is not on oxygen at home. She has not felt well since 07/20/2021. She has had increased cough. Mild shortness of breath. She has sputum production. She has had some chills. Denies fever. She is not vaccinated for COVID. She has not been eating or drinking. She felt dizzy and had a near syncopal episode. She is on IV fluid. She feels better. medications allergies reviewed PAST MEDICAL HISTORY: Diabetes mellitus, hypertension, hypercholesterolemia. PAST SURGICAL HISTORY: Appendectomy, cholecystectomy. SOCIAL HISTORY: History of [id number] smoking, quit smoking many years ago. FAMILY HISTORY: Hypertension. REVIEW OF SYSTEMS: As mentioned as above, other systems otherwise negative. PHYSICAL EXAMINATION: GENERAL: This is an overweight lady. VITAL SIGNS: Her O2 saturation on 2 liters of oxygen is 96%, respiratory rate 20, heart rate 76, blood pressure 139/94, temperature 98.6. HEENT: Normocephalic, atraumatic. Pupils equal, round, reactive to light. Shallow oropharynx. Nose is clear. NECK: There is no lymphadenopathy or thyromegaly. CARDIOVASCULAR: Regular rate and rhythm. PMI is not displaced. CHEST: Inspection is normal. LUNGS: There are bibasilar crackles. ABDOMEN: Soft and obese. Bowel sounds are good. EXTREMITIES: There is no edema. LYMPHATICS: There is no lymphadenopathy. LABORATORY DATA: I reviewed the following lab data: WBC 6.3, hemoglobin 13, platelet 202. Sodium 138, potassium 4.1, chloride 99, CO2 of 29, BUN 10, creatinine 0.8. Troponin 10, which is within normal limits. BNP 442. AST 65, ALT 71. Chest x-ray shows diffuse reticular interstitial thickening with interstitial changes. IMPRESSION: 1. Abnormal chest x-ray could be acute bronchitis versus congestive heart failure versus interstitial lung disease versus pneumonia. 2. Acute bronchitis. 3. Near syncopal episode secondary to dehydration. 4. Obesity, suspect obstructive sleep apnea-hypopnea syndrome. 5. Unvaccinated for COVID-19. 6. Hypertension. 7. Diabetes mellitus. PLAN AND RECOMMENDATIONS: 1. Titrate FiO2 to keep O2 saturation 92%. 2. Check COVID testing. 3. Continue azithromycin. 4. Lovenox for DVT prophylaxis. 5. Continue IV fluid. 6. I will do a CT of the chest to have a better look at lung parenchyma. 7. I do recommend a sleep study as an outpatient. 8. The findings and recommendations were discussed with the patient. She understood and agreed to proceed with the plan. Thank you very much for allowing me to participate in care of this very nice lady. EDIS DR: Augusto TID: [id number] MTDYael
[2021-08-04 08:15] LABS: CALCIUM 7.9 mg/dL (8.5-10.1); CREATININE 0.6 mg/dL (0.6-1.0); GFR 118.9; POTASSIUM 3.6 mmol/L (3.5-5.1)
[2021-08-04 08:18] LABS: CHOLESTEROL/HDL RATIO 3.5
[2021-08-04 08:28] LABS: BASO % 0 % (0-3); EOS % 1 % (0-3); HEMATOCRIT 34.1 % (36.0-47.0); HEMOGLOBIN 11.2 g/dL (12.0-15.5); LYMPH # 0.9 x10^3/uL (1.0-4.8); LYMPH % 17 % (24-48); MEAN CORPUSCULAR HEMOGLOBIN 29 pg (25-35); MEAN CORPUSCULAR HGB CONC 33 g/dL (31-37); MEAN CORPUSCULAR VOLUME 88 fL (79-100); MONO # 0.7 x10^3/uL (0.0-1.1); MONO % 13 % (0-9); NEUT # 3.6 x10^3/uL (1.8-7.7); NEUT % 70 % (31-73); PLATELET COUNT 234 x10^3/uL (140-400); RED BLOOD COUNT 3.89 x10^6/uL (3.50-5.40); RED CELL DISTRIBUTION WIDTH 15.2 % (11.5-14.5); WHITE BLOOD COUNT 5.1 x10^3/uL (4.0-11.0)
--- NOTE | 2021-08-04 09:12 | RAD ---
Examination: CT chest without contrast HISTORY: History of abnormal chest x-ray COMPARISON: None TECHNIQUE: Axial CT images of chest were performed without contrast. Coronal and sagittal reformats a re performed Exposure: One or more of the following individualized dose reduction techniques were utilized for thi s examination: 1. Automated exposure control 2. Adjustment of the mA and/or kV according to patient size 3. Use of iterative reconstruction technique FINDINGS: The visualized thyroid gland grossly appears unremarkable. Central airways are patent. Few enlarged m ediastinal lymph nodes with the largest measuring 1.5 cm in the pretracheal region. Few calcified lym ph nodes identified in the right hilum and mediastinum. There are multiple groundglass airspace opaci ties scattered in the bilateral lungs. Mild bilateral lung emphysematous changes. The liver, right adrenal grossly appears unremarkable. There is a small nodule identified left adrena l gland measuring 1.4 cm and measuring 4 Hounsfield units likely lipid rich adrenal adenoma. Mild deg enerative changes thoracic spine. IMPRESSION: 1. Multiple groundglass airspace opacities identified in the bilateral lungs likely Covid, atypical or viral pneumonia. Follow-up to resolution. 2. Few enlarged mediastinal lymph nodes probably reactive. 3. 1.4 cm nodule identified left adrenal gland measuring 4 Hounsfield units likely lipid rich adrena l adenoma. Electronically signed by: Juve Millan MD (08/04/2021 9:09 AM) [id number]
[2021-08-04] MEDS: guaiFENesin DM 200MG/20MG 10 ML SYRUP PO SCH ×4 (09:20→21:13)
[2021-08-04] MEDS: ENOXAPARIN 40 MG/0.4 ML SYRINGE. SQ SCH (09:20)
[2021-08-04] MEDS: AZITHROMYCIN 250 MG TABLET. PO SCH (09:20)
--- NOTE | 2021-08-04 10:02 | PDOC ---
PROGRESS NOTES Date of Service: DATE: 08/04/21 TIME: 10:02 Subjective Subjective c/o cough Objective Objective Vital Signs Date Time Temp Pulse Resp B/P (MAP) Pulse Ox O2 Delivery O2 Flow Rate FiO2 08/04/21 07:00 98.6 72 20 148/65 (92) 93 Nasal Cannula 2.0 98.6 Intake and Output 08/04/21 07:00 Intake Total 560 ml Balance 560 ml Intake Oral 560 ml # Voids 2 # Bowel Movements 1 Physical Exam Abdomen: Soft Heart: Regular rate Extremities: No edema General: Alert, Oriented X3 HEENT: Atraumatic Lungs: Clear to auscultation Neuro: Normal speech Psych/Mental Status: Mood NL Assessment Assessment 1. Near syncope: Most probably secondary to hypovolemia. BNP level slightly elevated but chest x-ray showed chronic interstitial changes. Doubt CHF. EKG showed sinus rhythm without acute changes. Cardiac enzymes negative. Continue intravenous hydration. 2. Acute bronchitis: Continue antibiotics. Pulmonary team following. 3. Hypertension: Controlled 4. Hyperlipidemia: Statin therapy 5. Diabetes mellitus type 2 treat per IM Plan Plan of Care Problems Medical Problems: (1) Near syncope Status: Acute (2) Orthostatic hypotension Status: Acute (3) Pulmonary edema Status: Acute Comment Review of Relevant I have reviewed the following items luis (where applicable) has been applied. Labs Laboratory Tests Test 08/03/21 10:29 08/03/21 17:22 08/03/21 21:11 08/04/21 06:25 Glucose (Fingerstick) 152 mg/dL (70-99) 120 mg/dL (70-99) 120 mg/dL (70-99) White Blood Count 5.1 x10^3/uL (4.0-11.0) Red Blood Count 3.89 x10^6/uL (3.50-5.40) Hemoglobin 11.2 g/dL (12.0-15.5) Hematocrit 34.1 % (36.0-47.0) Mean Corpuscular Volume 88 fL (79-100) Mean Corpuscular Hemoglobin 29 pg (25-35) Mean Corpuscular Hemoglobin Concent 33 g/dL (31-37) Red Cell Distribution Width 15.2 % (11.5-14.5) Platelet Count 234 x10^3/uL (140-400) Neutrophils (%) (Auto) 70 % (31-73) Lymphocytes (%) (Auto) 17 % (24-48) Monocytes (%) (Auto) 13 % (0-9) Eosinophils (%) (Auto) 1 % (0-3) Basophils (%) (Auto) 0 % (0-3) Neutrophils # (Auto) 3.6 x10^3/uL (1.8-7.7) Lymphocytes # (Auto) 0.9 x10^3/uL (1.0-4.8) Monocytes # (Auto) 0.7 x10^3/uL (0.0-1.1) Eosinophils # (Auto) 0.0 x10^3/uL (0.0-0.7) Basophils # (Auto) 0.0 x10^3/uL (0.0-0.2) Sodium Level 142 mmol/L (136-145) Potassium Level 3.6 mmol/L (3.5-5.1) Chloride Level 105 mmol/L (98-107) Carbon Dioxide Level 28 mmol/L (21-32) Anion Gap 9 (6-14) Blood Urea Nitrogen 8 mg/dL (7-20) Creatinine 0.6 mg/dL (0.6-1.0) Estimated GFR (Cockcroft-Gault) 118.9 Glucose Level 143 mg/dL (70-99) Calcium Level 7.9 mg/dL (8.5-10.1) Triglycerides Level 82 mg/dL (0-150) Cholesterol Level 145 mg/dL (0-200) LDL Cholesterol, Calculated 88 mg/dL (0-100) VLDL Cholesterol, Calculated 16 mg/dL (0-40) Non-HDL Cholesterol Calculated 104 mg/dL (0-129) HDL Cholesterol 41 mg/dL (40-60) Cholesterol/HDL Ratio 3.5 Test 08/04/21 07:27 08/04/21 08:05 Glucose (Fingerstick) 127 mg/dL (70-99) SARS-CoV-2 Antigen (Rapid) Positive (NEGATIVE) Microbiology 08/02/21 Urine Culture - Final, Complete Medications Current Medications Acetaminophen (Tylenol) 650 mg PRN Q6HRS PRN PO MILD PAIN / TEMP > 100.3'F; Start 08/03/21 at 10:30 Azithromycin (Zithromax) 250 mg DAILY PO Last administered on 08/04/21at 09:20; Start 08/04/21 at 09:00; Stop 08/07/21 at 09:01 Azithromycin (Zithromax) 500 mg 1X ONCE PO Last administered on 08/03/21at 12:12; Start 08/03/21 at 10:30; Stop 08/03/21 at 10:31; Status DC Enoxaparin Sodium (Lovenox 40mg Syringe) 40 mg Q24H SQ Last administered on 08/04/21at 09:20; Start 08/03/21 at 10:30 Guaifenesin (Robitussin Dm) 10 ml QID PO Last administered on 08/04/21at 09:20; Start 08/03/21 at 13:00 Sodium Chloride 1,000 ml @ 60 mls/hr [id number] IV Last administered on 08/04/21at 05:14; Start 08/03/21 at 10:45 Vitals/I & O Vital Sign - Last 24 Hours 08/03/21 08/03/21 08/03/21 08/03/21 11:00 15:00 19:00 20:06 Temp 98.5 98.2 98.7 98.5 98.2 98.7 Pulse 74 71 69 Resp 18 16 20 B/P (MAP) 139/74 (95) 136/52 (80) 153/62 (92) Pulse Ox 93 96 95 O2 Delivery Nasal Cannula Nasal Cannula Room Air Nasal Cannula O2 Flow Rate 2.0 2.0 4.0 08/03/21 08/04/21 08/04/21 23:00 03:00 07:00 Temp 98.6 98.6 98.6 98.6 98.6 98.6 Pulse 84 76 72 Resp 20 20 20 B/P (MAP) 149/36 (73) 139/94 (109) 148/65 (92) Pulse Ox 98 96 93 O2 Delivery Nasal Cannula Nasal Cannula Nasal Cannula O2 Flow Rate 2.0 2.0 2.0 Intake and Output 08/03/21 08/03/21 08/04/21 15:00 23:00 07:00 Intake Total 200 ml 360 ml Balance 200 ml 360 ml AGATA HERNANDEZ MD Aug 04, 2021 10:02
[2021-08-04 11:00] VITALS: BP 145/72
[2021-08-04] MEDS: INSULIN LISPRO 300 UNITS/3 ML VIAL. SQ SCH ×2 (12:00→18:32)
[2021-08-04] MEDS: DEXAMETHASONE SOD PHOS 4 MG/ML VIAL IVP SCH (13:53)
[2021-08-04 15:00] VITALS: BP 162/83
[2021-08-04] MEDS: IPRATROPIUM/ALBUTEROL 20/100mcg/INH INHALER. INH SCH ×2 (18:30→21:14)
[2021-08-04 19:00] VITALS: BP 169/82
[2021-08-04] MEDS: FAMOTIDINE 20 MG TABLET. PO SCH (21:13)
[2021-08-04] MEDS: ATORVASTATIN CALCIUM 20 MG TABLET PO SCH (21:13)
[2021-08-04 23:00] VITALS: BP 157/77
[2021-08-05 03:00] VITALS: BP 149/77
[2021-08-05 03:09] LABS: HEMOGLOBIN A1C 6.5 % (4.8-5.6)
[2021-08-05 07:00] VITALS: BP 174/68
[2021-08-05] MEDS ORDERED: PERFLUTREN PROTEIN-A MICROSPHR 0.22 MG/ML 3 ML VIAL. IV ONE (07:30)
--- NOTE | 2021-08-05 08:13 | PDOC ---
PULMONARY PROGRESS NOTES DATE: 08/05/21 TIME: 08:13 Subjective Patient currently off of oxygen, now more short of breath. Vitals Vital Signs Date Time Temp Pulse Resp B/P (MAP) Pulse Ox O2 Delivery O2 Flow Rate FiO2 08/05/21 03:00 96.7 77 20 149/77 (101) 96 Nasal Cannula 2.0 96.7 ROS: No Nausea, No Chest Pain, No Abdominal Pain, No Increase Cough General: Alert Lungs: Clear Cardiovascular: S1 Abdomen: Soft Extremities: No Edema Skin: Warm Labs Laboratory Tests Test 08/03/21 10:29 08/03/21 17:22 08/03/21 21:11 08/04/21 06:25 Glucose (Fingerstick) 152 mg/dL (70-99) 120 mg/dL (70-99) 120 mg/dL (70-99) White Blood Count 5.1 x10^3/uL (4.0-11.0) Red Blood Count 3.89 x10^6/uL (3.50-5.40) Hemoglobin 11.2 g/dL (12.0-15.5) Hematocrit 34.1 % (36.0-47.0) Mean Corpuscular Volume 88 fL (79-100) Mean Corpuscular Hemoglobin 29 pg (25-35) Mean Corpuscular Hemoglobin Concent 33 g/dL (31-37) Red Cell Distribution Width 15.2 % (11.5-14.5) Platelet Count 234 x10^3/uL (140-400) Neutrophils (%) (Auto) 70 % (31-73) Lymphocytes (%) (Auto) 17 % (24-48) Monocytes (%) (Auto) 13 % (0-9) Eosinophils (%) (Auto) 1 % (0-3) Basophils (%) (Auto) 0 % (0-3) Neutrophils # (Auto) 3.6 x10^3/uL (1.8-7.7) Lymphocytes # (Auto) 0.9 x10^3/uL (1.0-4.8) Monocytes # (Auto) 0.7 x10^3/uL (0.0-1.1) Eosinophils # (Auto) 0.0 x10^3/uL (0.0-0.7) Basophils # (Auto) 0.0 x10^3/uL (0.0-0.2) Sodium Level 142 mmol/L (136-145) Potassium Level 3.6 mmol/L (3.5-5.1) Chloride Level 105 mmol/L (98-107) Carbon Dioxide Level 28 mmol/L (21-32) Anion Gap 9 (6-14) Blood Urea Nitrogen 8 mg/dL (7-20) Creatinine 0.6 mg/dL (0.6-1.0) Estimated GFR (Cockcroft-Gault) 118.9 Glucose Level 143 mg/dL (70-99) Hemoglobin A1c 6.5 % (4.8-5.6) Calcium Level 7.9 mg/dL (8.5-10.1) Triglycerides Level 82 mg/dL (0-150) Cholesterol Level 145 mg/dL (0-200) LDL Cholesterol, Calculated 88 mg/dL (0-100) VLDL Cholesterol, Calculated 16 mg/dL (0-40) Non-HDL Cholesterol Calculated 104 mg/dL (0-129) HDL Cholesterol 41 mg/dL (40-60) Cholesterol/HDL Ratio 3.5 Test 08/04/21 07:27 08/04/21 08:05 08/04/21 17:23 08/04/21 21:11 Glucose (Fingerstick) 127 mg/dL (70-99) 185 mg/dL (70-99) 284 mg/dL (70-99) SARS-CoV-2 Antigen (Rapid) Positive (NEGATIVE) Laboratory Tests Test 08/04/21 17:23 08/04/21 21:11 Glucose (Fingerstick) 185 mg/dL (70-99) 284 mg/dL (70-99) Medications Active Scripts Medications Dose Route/Sig Max Daily Dose Days Date Category Pravastatin Sodium 80 Mg Tablet 1 Tab PO DAILY 08/03/21 Reported Impression . IMPRESSION: 1. Abnormal chest x-ray could be acute bronchitis versus congestive heart failure versus interstitial lung disease versus pneumonia. 2. Acute bronchitis. 3. Near syncopal episode secondary to dehydration. 4. Obesity, suspect obstructive sleep apnea-hypopnea syndrome. 5. Unvaccinated for COVID-19. 6. Hypertension. 7. Diabetes mellitus. Plan . Updated 08/05 continue oxygen supplementation SARS-CoV-2 testing positive Zithromax DVT prophylaxis CT chest reviewed compatible with COVID-19 PLAN AND RECOMMENDATIONS: 1. Titrate FiO2 to keep O2 saturation 92%. 2. Check COVID testing. 3. Continue azithromycin. 4. Lovenox for DVT prophylaxis. 5. Continue IV fluid. 6. I will do a CT of the chest to have a better look at lung parenchyma. 7. I do recommend a sleep study as an outpatient. 8. The findings and recommendations were discussed with the patient. She understood and agreed to proceed with the plan. Thank you very much for allowing me to participate in care of this very nice lady. MICHAEL RAM MD Aug 05, 2021 08:13
--- NOTE | 2021-08-05 09:38 | CONS ---
DATE OF CONSULTATION: 08/05/2021 REQUESTING PHYSICIAN: Partha Egan MD REASON FOR CONSULTATION: COVID-19 positive. HISTORY OF PRESENT ILLNESS: This is a 71-year-old female who came in after having a syncopal episode. Apparently, she has been having flu-like symptoms since [place] and after few days, she actually felt better, but then she had near syncopal episode. Hence, she came in. The patient is on 2 liters of oxygen. The patient denies any nausea, vomiting, diarrhea, chest pain, shortness of breath, abdominal pain, urinary symptoms or bowel symptoms. She has had some cough and initially she was told that she has bronchitis. COVID-19 PCR is positive. The patient is very comfortable right now on 2 liters of oxygen. PAST MEDICAL HISTORY: Positive for diabetes mellitus, hypertension, has hyperlipidemia, has had appendicectomy, cholecystectomy, cervical cancer treated with radiation, coronary artery disease, cerebrovascular accident, congestive heart failure, kidney stones. SOCIAL HISTORY: Negative for smoking, alcohol or illicit drug use. ALLERGIES: LISTED ALLERGIC TO SULFA AND AMOXICILLIN. REVIEW OF SYSTEMS: As in HPI. All other systems reviewed and are negative. CURRENT MEDICATIONS: The patient is on azithromycin, dexamethasone. PHYSICAL EXAMINATION: GENERAL: Alert, oriented female, not in distress. VITAL SIGNS: Stable, afebrile. HEENT: NAD. NECK: Supple, no JVP, no lymphadenopathy. LUNGS: Clear. HEART: S1, S2, regular. ABDOMEN: Soft, nontender, no organomegaly. EXTREMITIES: No edema or cyanosis. SKIN: Unremarkable. NEUROLOGIC: The patient is alert, awake, and appropriate. No focal neurologic deficit. LABORATORY DATA: White count is normal. BUN and creatinine is normal. Her ALT and AST were 65 and 71. BNP 25, it slowly went up to 442. Urinalysis unremarkable. COVID is positive. Chest CT: Bilateral ground glass opacity. IMPRESSION: 1. COVID-19 pneumonia, probably she started from the [place], then she is getting worse. 2. Near syncopal episode. 3. Coronary artery disease. 4. Congestive heart failure. 5. Diabetes mellitus. 6. Hypertension. RECOMMENDATIONS: Continue steroids. Get CRP, procalcitonin and ferritin. If they are not very high, then the patient probably can be discharged soon. Thank you very much, Dr. Egan for giving me opportunity to participate in this patient's care. JOEY DR: Holley TID: [id number]
[2021-08-05] MEDS: IPRATROPIUM/ALBUTEROL 20/100mcg/INH INHALER. INH SCH ×4 (09:47→21:45)
[2021-08-05] MEDS: guaiFENesin DM 200MG/20MG 10 ML SYRUP PO SCH ×4 (09:47→21:45)
[2021-08-05] MEDS: AZITHROMYCIN 250 MG TABLET. PO SCH (09:48)
[2021-08-05] MEDS: DEXAMETHASONE SOD PHOS 4 MG/ML VIAL IVP SCH (09:48)
[2021-08-05] MEDS: ENOXAPARIN 40 MG/0.4 ML SYRINGE. SQ SCH (09:49)
--- NOTE | 2021-08-05 10:09 | PDOC ---
PROGRESS NOTES Date of Service DATE: 08/05/21 TIME: 10:07 Subjective Subjective late entry progress not for 08/04/21. patient seen on 08/04 but note not written so this is the note. feels better. some cough. not short of breath at rest Objective Objective Vital Signs Date Time Temp Pulse Resp B/P (MAP) Pulse Ox O2 Delivery O2 Flow Rate FiO2 08/05/21 07:00 97.5 81 20 174/68 (103) 98 Nasal Cannula 2.0 97.5 Intake and Output 08/05/21 07:00 Intake Total 900 ml Balance 900 ml Intake Oral 900 ml # Voids 7 # Bowel Movements 1 Physical Exam Abdomen: Soft Heart: Regular rate, Normal S1, Normal S2 Extremities: No edema General: Alert HEENT: Atraumatic Lungs: Other (few rhonchi) Neck: Supple Neuro: Normal speech Psych/Mental Status: Mental status NL Skin: No rashes Assessment Assessment Problems1. Near syncopal episode. 2. Acute bronchitis. 3. Diabetes mellitus type 2. 4. Hypertension. 5. Hyperlipidemia. 6. Mild pyuria. 7. Severe protein calorie malnutrition. Medical Problems: (1) Near syncope Status: Acute (2) Orthostatic hypotension Status: Acute (3) Pulmonary edema Status: Acute Plan Plan of Care start decadron continue oxygen continue iv fluids consult ID continue lovenox continue famotidine Comment Review of Relevant I have reviewed the following items luis (where applicable) has been applied. Labs Laboratory Tests Test 08/03/21 10:29 08/03/21 17:22 08/03/21 21:11 08/04/21 06:25 Glucose (Fingerstick) 152 mg/dL (70-99) 120 mg/dL (70-99) 120 mg/dL (70-99) White Blood Count 5.1 x10^3/uL (4.0-11.0) Red Blood Count 3.89 x10^6/uL (3.50-5.40) Hemoglobin 11.2 g/dL (12.0-15.5) Hematocrit 34.1 % (36.0-47.0) Mean Corpuscular Volume 88 fL (79-100) Mean Corpuscular Hemoglobin 29 pg (25-35) Mean Corpuscular Hemoglobin Concent 33 g/dL (31-37) Red Cell Distribution Width 15.2 % (11.5-14.5) Platelet Count 234 x10^3/uL (140-400) Neutrophils (%) (Auto) 70 % (31-73) Lymphocytes (%) (Auto) 17 % (24-48) Monocytes (%) (Auto) 13 % (0-9) Eosinophils (%) (Auto) 1 % (0-3) Basophils (%) (Auto) 0 % (0-3) Neutrophils # (Auto) 3.6 x10^3/uL (1.8-7.7) Lymphocytes # (Auto) 0.9 x10^3/uL (1.0-4.8) Monocytes # (Auto) 0.7 x10^3/uL (0.0-1.1) Eosinophils # (Auto) 0.0 x10^3/uL (0.0-0.7) Basophils # (Auto) 0.0 x10^3/uL (0.0-0.2) Sodium Level 142 mmol/L (136-145) Potassium Level 3.6 mmol/L (3.5-5.1) Chloride Level 105 mmol/L (98-107) Carbon Dioxide Level 28 mmol/L (21-32) Anion Gap 9 (6-14) Blood Urea Nitrogen 8 mg/dL (7-20) Creatinine 0.6 mg/dL (0.6-1.0) Estimated GFR (Cockcroft-Gault) 118.9 Glucose Level 143 mg/dL (70-99) Hemoglobin A1c 6.5 % (4.8-5.6) Calcium Level 7.9 mg/dL (8.5-10.1) Triglycerides Level 82 mg/dL (0-150) Cholesterol Level 145 mg/dL (0-200) LDL Cholesterol, Calculated 88 mg/dL (0-100) VLDL Cholesterol, Calculated 16 mg/dL (0-40) Non-HDL Cholesterol Calculated 104 mg/dL (0-129) HDL Cholesterol 41 mg/dL (40-60) Cholesterol/HDL Ratio 3.5 Test 08/04/21 07:27 08/04/21 08:05 08/04/21 17:23 08/04/21 21:11 Glucose (Fingerstick) 127 mg/dL (70-99) 185 mg/dL (70-99) 284 mg/dL (70-99) SARS-CoV-2 Antigen (Rapid) Positive (NEGATIVE) Test 08/05/21 08:14 Glucose (Fingerstick) 205 mg/dL (70-99) Laboratory Tests Test 08/04/21 17:23 08/04/21 21:11 08/05/21 08:14 Glucose (Fingerstick) 185 mg/dL (70-99) 284 mg/dL (70-99) 205 mg/dL (70-99) Microbiology 08/02/21 Urine Culture - Final, Complete Medications Current Medications Sodium Chloride 1,000 ml @ 1,000 mls/hr 1X ONCE IV Last administered on 08/02/21at 20:42; Start 08/02/21 at 20:00; Stop 08/02/21 at 20:59; Status DC Atorvastatin Calcium (Lipitor) 20 mg QHS PO Last administered on 08/04/21at 21:13; Start 08/02/21 at 21:00 Guaifenesin (Robitussin Dm) 10 ml QID PO Last administered on 08/04/21at 21:13; Start 08/03/21 at 13:00 Azithromycin (Zithromax) 500 mg 1X ONCE PO Last administered on 08/03/21at 12:12 ; Start 08/03/21 at 10:30; Stop 08/03/21 at 10:31; Status DC Azithromycin (Zithromax) 250 mg DAILY PO Last administered on 08/04/21at 09:20; Start 08/04/21 at 09:00; Stop 08/07/21 at 09:01 Acetaminophen (Tylenol) 650 mg PRN Q6HRS PRN PO MILD PAIN / TEMP > 100.3'F; Start 08/03/21 at 10:30 Enoxaparin Sodium (Lovenox 40mg Syringe) 40 mg Q24H SQ Last administered on 08/04/21at 09:20; Start 08/03/21 at 10:30 Sodium Chloride 1,000 ml @ 40 mls/hr Q24H IV Last administered on 08/04/21at 21:13; Start 08/03/21 at 10:45 Dexamethasone Sodium Phosphate (Decadron) 6 mg DAILY IVP Last administered on 08/04/21at 13:53; Start 08/04/21 at 11:00 Insulin Human Lispro (HumaLOG) 0-6 UNITS BG 300-39... TIDWMEALS SQ Last administered on 08/04/21at 18:32; Start 08/04/21 at 12:00 Famotidine (Pepcid) 20 mg QHS PO Last administered on 08/04/21at 21:13; Start 08/04/21 at 21:00 Albuterol/ Ipratropium (Combivent Respimat 20-100 Mcg) 1 puff RTQID INH Last administered on 08/04/21at 21:14; Start 08/04/21 at 16:00 Perflutren Protein Type A Microsphe (Optison) 0.66 mg 1X ONCE IV ; Start 08/05/21 at 07:30; Stop 08/05/21 at 07:31; Status DC Active Scripts Active Reported Pravastatin Sodium 80 Mg Tablet 1 Tab PO DAILY Vitals/I & O Vital Sign - Last 24 Hours 08/04/21 08/04/21 08/04/21 08/04/21 11:00 15:00 19:00 20:26 Temp 98.0 98.3 97.5 98.0 98.3 97.5 Pulse 75 76 93 Resp 20 19 20 B/P (MAP) 145/72 (96) 162/83 (109) 169/82 (111) Pulse Ox 96 96 95 O2 Delivery Nasal Cannula Nasal Cannula Nasal Cannula Nasal Cannula O2 Flow Rate 2.0 2.0 2.0 4.0 08/04/21 08/05/21 08/05/21 23:00 03:00 07:00 Temp 97.8 96.7 97.5 97.8 96.7 97.5 Pulse 90 77 81 Resp 20 20 20 B/P (MAP) 157/77 (103) 149/77 (101) 174/68 (103) Pulse Ox 99 96 98 O2 Delivery Nasal Cannula Nasal Cannula Nasal Cannula O2 Flow Rate 2.0 2.0 2.0 Intake and Output 08/04/21 08/04/21 08/05/21 15:00 23:00 07:00 Intake Total 300 ml 200 ml 400 ml Balance 300 ml 200 ml 400 ml Justifications for Admission Other Justification MYRA GUALLPA MD Aug 05, 2021 10:09
--- NOTE | 2021-08-05 10:13 | PDOC ---
PROGRESS NOTES Date of Service DATE: 08/05/21 TIME: 10:10 Subjective Subjective feels better. bp is high and will start amlodipine. blood sugars high due to decadron and will increase insulin sliding scale. some cough. not short of breath at rest. Objective Objective Vital Signs Date Time Temp Pulse Resp B/P (MAP) Pulse Ox O2 Delivery O2 Flow Rate FiO2 08/05/21 07:00 97.5 81 20 174/68 (103) 98 Nasal Cannula 2.0 97.5 Intake and Output 08/05/21 07:00 Intake Total 900 ml Balance 900 ml Intake Oral 900 ml # Voids 7 # Bowel Movements 1 Physical Exam Abdomen: Soft Heart: Regular rate, Normal S1, Normal S2 Extremities: No edema General: Alert HEENT: Atraumatic Lungs: Other (few rhonchi) Neck: Supple Neuro: Normal speech Psych/Mental Status: Mental status NL Skin: No rashes Assessment Assessment Problems1. Near syncopal episode. 2. Acute bronchitis. 3. Diabetes mellitus type 2.with steroid induced hyperglycemia 4. Hypertension.bp high 5. Hyperlipidemia. 6. Mild pyuria.urine culture negative 7. Severe protein calorie malnutrition. Medical Problems: (1) Near syncope Status: Acute (2) Orthostatic hypotension Status: Acute (3) Pulmonary edema Status: Acute Plan Plan of Care continue oxygen conitinue iv decadron increase humalog insulin sliding scale start amlodipine d/c iv fluids check RA oxygen sat rest and walking labs tomorrow Comment Review of Relevant I have reviewed the following items luis (where applicable) has been applied. Labs Laboratory Tests Test 08/03/21 10:29 08/03/21 17:22 08/03/21 21:11 08/04/21 06:25 Glucose (Fingerstick) 152 mg/dL (70-99) 120 mg/dL (70-99) 120 mg/dL (70-99) White Blood Count 5.1 x10^3/uL (4.0-11.0) Red Blood Count 3.89 x10^6/uL (3.50-5.40) Hemoglobin 11.2 g/dL (12.0-15.5) Hematocrit 34.1 % (36.0-47.0) Mean Corpuscular Volume 88 fL (79-100) Mean Corpuscular Hemoglobin 29 pg (25-35) Mean Corpuscular Hemoglobin Concent 33 g/dL (31-37) Red Cell Distribution Width 15.2 % (11.5-14.5) Platelet Count 234 x10^3/uL (140-400) Neutrophils (%) (Auto) 70 % (31-73) Lymphocytes (%) (Auto) 17 % (24-48) Monocytes (%) (Auto) 13 % (0-9) Eosinophils (%) (Auto) 1 % (0-3) Basophils (%) (Auto) 0 % (0-3) Neutrophils # (Auto) 3.6 x10^3/uL (1.8-7.7) Lymphocytes # (Auto) 0.9 x10^3/uL (1.0-4.8) Monocytes # (Auto) 0.7 x10^3/uL (0.0-1.1) Eosinophils # (Auto) 0.0 x10^3/uL (0.0-0.7) Basophils # (Auto) 0.0 x10^3/uL (0.0-0.2) Sodium Level 142 mmol/L (136-145) Potassium Level 3.6 mmol/L (3.5-5.1) Chloride Level 105 mmol/L (98-107) Carbon Dioxide Level 28 mmol/L (21-32) Anion Gap 9 (6-14) Blood Urea Nitrogen 8 mg/dL (7-20) Creatinine 0.6 mg/dL (0.6-1.0) Estimated GFR (Cockcroft-Gault) 118.9 Glucose Level 143 mg/dL (70-99) Hemoglobin A1c 6.5 % (4.8-5.6) Calcium Level 7.9 mg/dL (8.5-10.1) Triglycerides Level 82 mg/dL (0-150) Cholesterol Level 145 mg/dL (0-200) LDL Cholesterol, Calculated 88 mg/dL (0-100) VLDL Cholesterol, Calculated 16 mg/dL (0-40) Non-HDL Cholesterol Calculated 104 mg/dL (0-129) HDL Cholesterol 41 mg/dL (40-60) Cholesterol/HDL Ratio 3.5 Test 08/04/21 07:27 08/04/21 08:05 08/04/21 17:23 08/04/21 21:11 Glucose (Fingerstick) 127 mg/dL (70-99) 185 mg/dL (70-99) 284 mg/dL (70-99) SARS-CoV-2 Antigen (Rapid) Positive (NEGATIVE) Test 08/05/21 08:14 Glucose (Fingerstick) 205 mg/dL (70-99) Laboratory Tests Test 08/04/21 17:23 08/04/21 21:11 08/05/21 08:14 Glucose (Fingerstick) 185 mg/dL (70-99) 284 mg/dL (70-99) 205 mg/dL (70-99) Microbiology 08/02/21 Urine Culture - Final, Complete Medications Current Medications Sodium Chloride 1,000 ml @ 1,000 mls/hr 1X ONCE IV Last administered on 08/02/21at 20:42; Start 08/02/21 at 20:00; Stop 08/02/21 at 20:59; Status DC Atorvastatin Calcium (Lipitor) 20 mg QHS PO Last administered on 08/04/21at 21:13; Start 08/02/21 at 21:00 Guaifenesin (Robitussin Dm) 10 ml QID PO Last administered on 08/04/21at 21:13; Start 08/03/21 at 13:00 Azithromycin (Zithromax) 500 mg 1X ONCE PO Last administered on 08/03/21at 12:12; Start 08/03/21 at 10:30; Stop 08/03/21 at 10:31; Status DC Azithromycin (Zithromax) 250 mg DAILY PO Last administered on 08/04/21at 09:20; Start 08/04/21 at 09:00; Stop 08/07/21 at 09:01 Acetaminophen (Tylenol) 650 mg PRN Q6HRS PRN PO MILD PAIN / TEMP > 100.3'F; Start 08/03/21 at 10:30 Enoxaparin Sodium (Lovenox 40mg Syringe) 40 mg Q24H SQ Last administered on 08/04/21at 09:20; Start 08/03/21 at 10:30 Sodium Chloride 1,000 ml @ 40 mls/hr Q24H IV Last administered on 08/04/21at 21:13; Start 08/03/21 at 10:45 Dexamethasone Sodium Phosphate (Decadron) 6 mg DAILY IVP Last administered on 08/04/21at 13:53; Start 08/04/21 at 11:00 Insulin Human Lispro (HumaLOG) 0-6 UNITS BG 300-39... TIDWMEALS SQ Last administered on 08/04/21at 18:32; Start 08/04/21 at 12:00 Famotidine (Pepcid) 20 mg QHS PO Last administered on 08/04/21at 21:13; Start 08/04/21 at 21:00 Albuterol/ Ipratropium (Combivent Respimat 20-100 Mcg) 1 puff RTQID INH Last administered on 08/04/21at 21:14; Start 08/04/21 at 16:00 Perflutren Protein Type A Microsphe (Optison) 0.66 mg 1X ONCE IV ; Start 08/05/21 at 07:30; Stop 08/05/21 at 07:31; Status DC Active Scripts Active Reported Pravastatin Sodium 80 Mg Tablet 1 Tab PO DAILY Vitals/I & O Vital Sign - Last 24 Hours 08/04/21 08/04/21 08/04/21 08/04/21 11:00 15:00 19:00 20:26 Temp 98.0 98.3 97.5 98.0 98.3 97.5 Pulse 75 76 93 Resp 20 19 20 B/P (MAP) 145/72 (96) 162/83 (109) 169/82 (111) Pulse Ox 96 96 95 O2 Delivery Nasal Cannula Nasal Cannula Nasal Cannula Nasal Cannula O2 Flow Rate 2.0 2.0 2.0 4.0 08/04/21 08/05/21 08/05/21 23:00 03:00 07:00 Temp 97.8 96.7 97.5 97.8 96.7 97.5 Pulse 90 77 81 Resp 20 20 20 B/P (MAP) 157/77 (103) 149/77 (101) 174/68 (103) Pulse Ox 99 96 98 O2 Delivery Nasal Cannula Nasal Cannula Nasal Cannula O2 Flow Rate 2.0 2.0 2.0 Intake and Output 08/04/21 08/04/21 08/05/21 15:00 23:00 07:00 Intake Total 300 ml 200 ml 400 ml Balance 300 ml 200 ml 400 ml Justifications for Admission Other Justification MYRA GUALLPA MD Aug 05, 2021 10:13
[2021-08-05 11:00] VITALS: BP 162/68
[2021-08-05 11:02] LABS: C-REACTIVE PROTEIN 52.4 mg/L (0-3.3)
--- NOTE | 2021-08-05 12:50 | NUR ---
SW following. Discussed with RN, pt from home alone, 2L, ada diet, COVID-19 positive. Pulmonology following. SW will continue to follow.
[2021-08-05] MEDS: INSULIN LISPRO 300 UNITS/3 ML VIAL. SQ SCH ×2 (13:12→17:48)
--- NOTE | 2021-08-05 14:54 | PDOC ---
PROGRESS NOTES Date of Service: DATE: 08/05/21 TIME: 14:53 Subjective Subjective c/o cough, no dizziness Objective Objective Vital Signs Date Time Temp Pulse Resp B/P (MAP) Pulse Ox O2 Delivery O2 Flow Rate FiO2 08/05/21 11:10 81 174/68 08/05/21 11:00 97.6 20 92 Nasal Cannula 2.0 97.6 Intake and Output 08/05/21 07:00 Intake Total 900 ml Balance 900 ml Intake Oral 900 ml # Voids 7 # Bowel Movements 1 Physical Exam Abdomen: Soft Heart: Regular rate, Normal S1, Normal S2 Extremities: No edema General: Alert HEENT: Atraumatic Lungs: Other (few rhonchi) Neck: Supple Neuro: Normal speech Psych/Mental Status: Mental status NL Skin: No rashes Assessment Assessment 1. Near syncope: Most probably secondary to hypovolemia. BNP level slightly elevated but chest x-ray showed chronic interstitial changes. Doubt CHF. EKG showed sinus rhythm without acute changes. Cardiac enzymes negative. Continue intravenous hydration. 2. Acute bronchitis: Continue antibiotics. Pulmonary team following. 3. Hypertension: Controlled 4. Hyperlipidemia: Statin therapy 5. Diabetes mellitus type 2 treat per IM Plan Plan of Care Problems Medical Problems: (1) Near syncope Status: Acute (2) Orthostatic hypotension Status: Acute (3) Pulmonary edema Status: Acute Comment Review of Relevant I have reviewed the following items luis (where applicable) has been applied. Labs Laboratory Tests Test 08/04/21 17:23 08/04/21 21:11 08/05/21 08:14 08/05/21 09:40 Glucose (Fingerstick) 185 mg/dL (70-99) 284 mg/dL (70-99) 205 mg/dL (70-99) Ferritin 435 ng/mL (8-252) C-Reactive Protein, Quantitative 52.4 mg/L (0-3.3) Procalcitonin < 0.10 ng/mL (0.00-0.10) Test 08/05/21 12:08 Glucose (Fingerstick) 242 mg/dL (70-99) Microbiology 08/02/21 Urine Culture - Final, Complete Medications Current Medications Albuterol/ Ipratropium (Combivent Respimat 20-100 Mcg) 1 puff RTQID INH Last administered on 08/05/21at 12:58; Start 08/04/21 at 16:00 Amlodipine Besylate (Norvasc) 5 mg DAILY PO Last administered on 08/05/21at 11:10; Start 08/05/21 at 11:00 Famotidine (Pepcid) 20 mg QHS PO Last administered on 08/04/21at 21:13; Start 08/04/21 at 21:00 Insulin Human Lispro (HumaLOG) 0-6 UNITS BG 300-39... TIDWMEALS SQ Last administered on 08/05/21at 13:12; Start 08/05/21 at 12:00 Lactobacillus Rhamnosus (Culturelle) 1 cap BID PO ; Start 08/05/21 at 21:00 Perflutren Protein Type A Microsphe (Optison) 0.66 mg 1X ONCE IV ; Start 08/05/21 at 07:30; Stop 08/05/21 at 07:31; Status DC Vitals/I & O Vital Sign - Last 24 Hours 08/04/21 08/04/21 08/04/21 08/04/21 15:00 19:00 20:26 23:00 Temp 98.3 97.5 97.8 98.3 97.5 97.8 Pulse 76 93 90 Resp 19 20 20 B/P (MAP) 162/83 (109) 169/82 (111) 157/77 (103) Pulse Ox 96 95 99 O2 Delivery Nasal Cannula Nasal Cannula Nasal Cannula Nasal Cannula O2 Flow Rate 2.0 2.0 4.0 2.0 08/05/21 08/05/21 08/05/21 08/05/21 03:00 07:00 11:00 11:10 Temp 96.7 97.5 97.6 96.7 97.5 97.6 Pulse 77 81 79 81 Resp 20 20 20 B/P (MAP) 149/77 (101) 174/68 (103) 162/68 (99) 174/68 Pulse Ox 96 98 92 O2 Delivery Nasal Cannula Nasal Cannula Nasal Cannula O2 Flow Rate 2.0 2.0 2.0 Intake and Output 08/04/21 08/04/21 08/05/21 15:00 23:00 07:00 Intake Total 300 ml 200 ml 400 ml Balance 300 ml 200 ml 400 ml AGATA HERNANDEZ MD Aug 05, 2021 14:54
[2021-08-05 15:00] VITALS: BP 157/67
[2021-08-05 19:00] VITALS: BP 151/68
--- NOTE | 2021-08-05 19:21 | NUR ---
Per Dr. Egan's free text nursing order, oxygen removed patients O2 sats remained above 90% at rest and after exertion so patient remained on RA.
[2021-08-05] MEDS: FAMOTIDINE 20 MG TABLET. PO SCH (21:45)
[2021-08-05] MEDS: LACTOBACILLUS RHAMNOSUS GG 1 CAPSULE. PO SCH (21:45)
[2021-08-05] MEDS: ATORVASTATIN CALCIUM 20 MG TABLET PO SCH (21:45)
[2021-08-05 23:00] VITALS: BP 170/73
[2021-08-06 03:00] VITALS: BP 156/79
[2021-08-06 07:00] VITALS: BP 169/93
[2021-08-06 08:21] LABS: BASO % 1 % (0-3); EOS % 0 % (0-3); HEMATOCRIT 35.9 % (36.0-47.0); HEMOGLOBIN 12.1 g/dL (12.0-15.5); LYMPH # 1.4 x10^3/uL (1.0-4.8); LYMPH % 17 % (24-48); MEAN CORPUSCULAR HEMOGLOBIN 29 pg (25-35); MEAN CORPUSCULAR HGB CONC 34 g/dL (31-37); MEAN CORPUSCULAR VOLUME 87 fL (79-100); MONO % 13 % (0-9); NEUT # 5.7 x10^3/uL (1.8-7.7); NEUT % 70 % (31-73); PLATELET COUNT 358 x10^3/uL (140-400); RED BLOOD COUNT 4.14 x10^6/uL (3.50-5.40); RED CELL DISTRIBUTION WIDTH 14.9 % (11.5-14.5); WHITE BLOOD COUNT 8.2 x10^3/uL (4.0-11.0)
[2021-08-06 08:36] LABS: CALCIUM 8.8 mg/dL (8.5-10.1); CREATININE 0.7 mg/dL (0.6-1.0); GFR 99.5; POTASSIUM 3.4 mmol/L (3.5-5.1)
[2021-08-06] MEDS: DEXAMETHASONE SOD PHOS 4 MG/ML VIAL IVP SCH (08:45)
[2021-08-06] MEDS: guaiFENesin DM 200MG/20MG 10 ML SYRUP PO SCH (08:45)
[2021-08-06] MEDS: LACTOBACILLUS RHAMNOSUS GG 1 CAPSULE. PO SCH (08:45)
[2021-08-06] MEDS: IPRATROPIUM/ALBUTEROL 20/100mcg/INH INHALER. INH SCH (08:45)
[2021-08-06 08:46] VITALS: BP 169/93
[2021-08-06] MEDS: AZITHROMYCIN 250 MG TABLET. PO SCH (08:46)
--- NOTE | 2021-08-06 08:46 | PDOC ---
Infectious Disease Note Subjective Subjective Patient is feeling good she says she is ready to go home ROS ROS No nausea vomiting diarrhea chest pain shortness of breath Vital Sign Vital Signs Vital Signs Date Time Temp Pulse Resp B/P (MAP) Pulse Ox O2 Delivery O2 Flow Rate FiO2 08/06/21 07:00 97.7 69 18 169/93 (118) 93 Room Air 97.7 08/05/21 19:00 2.0 Physical Exam PHYSICAL EXAM GENERAL: Alert, oriented female, not in distress. VITAL SIGNS: Stable, afebrile. HEENT: NAD. NECK: Supple, no JVP, no lymphadenopathy. LUNGS: Clear. HEART: S1, S2, regular. ABDOMEN: Soft, nontender, no organomegaly. EXTREMITIES: No edema or cyanosis. SKIN: Unremarkable. NEUROLOGIC: The patient is alert, awake, and appropriate. No focal neurologic deficit. Labs Lab Laboratory Tests Test 08/05/21 09:40 08/05/21 12:08 08/05/21 17:16 08/05/21 21:43 Ferritin 435 ng/mL (8-252) C-Reactive Protein, Quantitative 52.4 mg/L (0-3.3) Procalcitonin < 0.10 ng/mL (0.00-0.10) Glucose (Fingerstick) 242 mg/dL (70-99) 262 mg/dL (70-99) 182 mg/dL (70-99) Test 08/06/21 07:32 08/06/21 07:45 Glucose (Fingerstick) 197 mg/dL (70-99) White Blood Count 8.2 x10^3/uL (4.0-11.0) Red Blood Count 4.14 x10^6/uL (3.50-5.40) Hemoglobin 12.1 g/dL (12.0-15.5) Hematocrit 35.9 % (36.0-47.0) Mean Corpuscular Volume 87 fL (79-100) Mean Corpuscular Hemoglobin 29 pg (25-35) Mean Corpuscular Hemoglobin Concent 34 g/dL (31-37) Red Cell Distribution Width 14.9 % (11.5-14.5) Platelet Count 358 x10^3/uL (140-400) Neutrophils (%) (Auto) 70 % (31-73) Lymphocytes (%) (Auto) 17 % (24-48) Monocytes (%) (Auto) 13 % (0-9) Eosinophils (%) (Auto) 0 % (0-3) Basophils (%) (Auto) 1 % (0-3) Neutrophils # (Auto) 5.7 x10^3/uL (1.8-7.7) Lymphocytes # (Auto) 1.4 x10^3/uL (1.0-4.8) Monocytes # (Auto) 1.0 x10^3/uL (0.0-1.1) Eosinophils # (Auto) 0.0 x10^3/uL (0.0-0.7) Basophils # (Auto) 0.0 x10^3/uL (0.0-0.2) Sodium Level 144 mmol/L (136-145) Potassium Level 3.4 mmol/L (3.5-5.1) Chloride Level 104 mmol/L (98-107) Carbon Dioxide Level 31 mmol/L (21-32) Anion Gap 9 (6-14) Blood Urea Nitrogen 8 mg/dL (7-20) Creatinine 0.7 mg/dL (0.6-1.0) Estimated GFR (Cockcroft-Gault) 99.5 Glucose Level 200 mg/dL (70-99) Calcium Level 8.8 mg/dL (8.5-10.1) Micro URINE CULTURE Final Final 20,000 CFU/ML Normal genitourinary mavis, not indicative of infection on 08/04/21 at 0851 Unless otherwise specified, Testing Performed by: [address] [address] For Inquires, the Physician may contact the Microbiology department at [phone] Objective Assessment IMPRESSION: 1. COVID-19 pneumonia, probably she started from the [place], then she is getting worse. 2. Near syncopal episode. 3. Coronary artery disease. 4. Congestive heart failure. 5. Diabetes mellitus. 6. Hypertension. Plan Plan of Care Patient is on room air Patient can be discharged from the ID standpoint KEELY GEORGE MD Aug 06, 2021 08:46
--- NOTE | 2021-08-06 09:16 | PDOC ---
PULMONARY PROGRESS NOTES DATE: 08/06/21 TIME: 09:16 Subjective Patient currently off of oxygen, now more short of breath. Vitals Vital Signs Date Time Temp Pulse Resp B/P (MAP) Pulse Ox O2 Delivery O2 Flow Rate FiO2 08/06/21 08:46 69 169/93 08/06/21 07:00 97.7 18 93 Room Air 97.7 08/05/21 19:00 2.0 ROS: No Nausea, No Chest Pain, No Abdominal Pain, No Increase Cough General: Alert Lungs: Clear Cardiovascular: S1 Abdomen: Soft Extremities: No Edema Skin: Warm Labs Laboratory Tests Test 08/04/21 17:23 08/04/21 21:11 08/05/21 08:14 08/05/21 09:40 Glucose (Fingerstick) 185 mg/dL (70-99) 284 mg/dL (70-99) 205 mg/dL (70-99) Ferritin 435 ng/mL (8-252) C-Reactive Protein, Quantitative 52.4 mg/L (0-3.3) Procalcitonin < 0.10 ng/mL (0.00-0.10) Test 08/05/21 12:08 08/05/21 17:16 08/05/21 21:43 08/06/21 07:32 Glucose (Fingerstick) 242 mg/dL (70-99) 262 mg/dL (70-99) 182 mg/dL (70-99) 197 mg/dL (70-99) Test 08/06/21 07:45 White Blood Count 8.2 x10^3/uL (4.0-11.0) Red Blood Count 4.14 x10^6/uL (3.50-5.40) Hemoglobin 12.1 g/dL (12.0-15.5) Hematocrit 35.9 % (36.0-47.0) Mean Corpuscular Volume 87 fL (79-100) Mean Corpuscular Hemoglobin 29 pg (25-35) Mean Corpuscular Hemoglobin Concent 34 g/dL (31-37) Red Cell Distribution Width 14.9 % (11.5-14.5) Platelet Count 358 x10^3/uL (140-400) Neutrophils (%) (Auto) 70 % (31-73) Lymphocytes (%) (Auto) 17 % (24-48) Monocytes (%) (Auto) 13 % (0-9) Eosinophils (%) (Auto) 0 % (0-3) Basophils (%) (Auto) 1 % (0-3) Neutrophils # (Auto) 5.7 x10^3/uL (1.8-7.7) Lymphocytes # (Auto) 1.4 x10^3/uL (1.0-4.8) Monocytes # (Auto) 1.0 x10^3/uL (0.0-1.1) Eosinophils # (Auto) 0.0 x10^3/uL (0.0-0.7) Basophils # (Auto) 0.0 x10^3/uL (0.0-0.2) Sodium Level 144 mmol/L (136-145) Potassium Level 3.4 mmol/L (3.5-5.1) Chloride Level 104 mmol/L (98-107) Carbon Dioxide Level 31 mmol/L (21-32) Anion Gap 9 (6-14) Blood Urea Nitrogen 8 mg/dL (7-20) Creatinine 0.7 mg/dL (0.6-1.0) Estimated GFR (Cockcroft-Gault) 99.5 Glucose Level 200 mg/dL (70-99) Calcium Level 8.8 mg/dL (8.5-10.1) Laboratory Tests Test 08/05/21 09:40 08/05/21 12:08 08/05/21 17:16 08/05/21 21:43 Ferritin 435 ng/mL (8-252) C-Reactive Protein, Quantitative 52.4 mg/L (0-3.3) Procalcitonin < 0.10 ng/mL (0.00-0.10) Glucose (Fingerstick) 242 mg/dL (70-99) 262 mg/dL (70-99) 182 mg/dL (70-99) Test 08/06/21 07:32 08/06/21 07:45 Glucose (Fingerstick) 197 mg/dL (70-99) White Blood Count 8.2 x10^3/uL (4.0-11.0) Red Blood Count 4.14 x10^6/uL (3.50-5.40) Hemoglobin 12.1 g/dL (12.0-15.5) Hematocrit 35.9 % (36.0-47.0) Mean Corpuscular Volume 87 fL (79-100) Mean Corpuscular Hemoglobin 29 pg (25-35) Mean Corpuscular Hemoglobin Concent 34 g/dL (31-37) Red Cell Distribution Width 14.9 % (11.5-14.5) Platelet Count 358 x10^3/uL (140-400) Neutrophils (%) (Auto) 70 % (31-73) Lymphocytes (%) (Auto) 17 % (24-48) Monocytes (%) (Auto) 13 % (0-9) Eosinophils (%) (Auto) 0 % (0-3) Basophils (%) (Auto) 1 % (0-3) Neutrophils # (Auto) 5.7 x10^3/uL (1.8-7.7) Lymphocytes # (Auto) 1.4 x10^3/uL (1.0-4.8) Monocytes # (Auto) 1.0 x10^3/uL (0.0-1.1) Eosinophils # (Auto) 0.0 x10^3/uL (0.0-0.7) Basophils # (Auto) 0.0 x10^3/uL (0.0-0.2) Sodium Level 144 mmol/L (136-145) Potassium Level 3.4 mmol/L (3.5-5.1) Chloride Level 104 mmol/L (98-107) Carbon Dioxide Level 31 mmol/L (21-32) Anion Gap 9 (6-14) Blood Urea Nitrogen 8 mg/dL (7-20) Creatinine 0.7 mg/dL (0.6-1.0) Estimated GFR (Cockcroft-Gault) 99.5 Glucose Level 200 mg/dL (70-99) Calcium Level 8.8 mg/dL (8.5-10.1) Medications Active Scripts Medications Dose Route/Sig Max Daily Dose Days Date Category Pravastatin Sodium 80 Mg Tablet 1 Tab PO DAILY 08/03/21 Reported Impression . IMPRESSION: 1. Abnormal chest x-ray could be acute bronchitis versus congestive heart failure versus interstitial lung disease versus pneumonia. 2. Acute bronchitis. 3. Near syncopal episode secondary to dehydration. 4. Obesity, suspect obstructive sleep apnea-hypopnea syndrome. 5. Unvaccinated for COVID-19. 6. Hypertension. 7. Diabetes mellitus. Plan . Updated 08/05 continue oxygen supplementation SARS-CoV-2 testing positive Zithromax DVT prophylaxis CT chest reviewed compatible with COVID-19 PLAN AND RECOMMENDATIONS: 1. Titrate FiO2 to keep O2 saturation 92%. 2. Check COVID testing. 3. Continue azithromycin. 4. Lovenox for DVT prophylaxis. 5. Continue IV fluid. 6. I will do a CT of the chest to have a better look at lung parenchyma. 7. I do recommend a sleep study as an outpatient. 8. The findings and recommendations were discussed with the patient. She understood and agreed to proceed with the plan. Thank you very much for allowing me to participate in care of this very nice lady. MICHAEL RAM MD Aug 06, 2021 09:16
--- NOTE | 2021-08-06 09:30 | PDOC ---
PROGRESS NOTES Date of Service DATE: 08/06/21 TIME: 09:28 Subjective Subjective feels better. on RA. not short of breath .cough better. blood sugars high due to steroids. bp high and just started bp meds Objective Objective Vital Signs Date Time Temp Pulse Resp B/P (MAP) Pulse Ox O2 Delivery O2 Flow Rate FiO2 08/06/21 08:46 69 169/93 08/06/21 08:00 Room Air 08/06/21 07:00 97.7 18 93 97.7 08/05/21 19:00 2.0 Intake and Output 08/06/21 07:00 Intake Total 1200 ml Output Total 0 ml Balance 1200 ml Intake Oral 200 ml IV Total 1000 ml Output Urine Total 0 ml # Voids 3 Physical Exam Abdomen: Soft Heart: Regular rate, Normal S2 Extremities: No edema General: Alert HEENT: Atraumatic Lungs: Clear to auscultation Neck: Supple Neuro: Normal speech Psych/Mental Status: Mental status NL Skin: No rashes Assessment Assessment Problems1. Near syncopal episode. 2. Acute bronchitis. 3. Diabetes mellitus type 2.with steroid induced hyperglycemia 4. Hypertension.bp high 5. Hyperlipidemia. 6. Mild pyuria.urine culture negative 7. Severe protein calorie malnutrition. Medical Problems: (1) Near syncope Status: Acute (2) Orthostatic hypotension Status: Acute (3) Pulmonary edema Status: Acute Plan Plan of Care dismiss today on po decadron Comment Review of Relevant I have reviewed the following items luis (where applicable) has been applied. Labs Laboratory Tests Test 08/04/21 17:23 08/04/21 21:11 08/05/21 08:14 08/05/21 09:40 Glucose (Fingerstick) 185 mg/dL (70-99) 284 mg/dL (70-99) 205 mg/dL (70-99) Ferritin 435 ng/mL (8-252) C-Reactive Protein, Quantitative 52.4 mg/L (0-3.3) Procalcitonin < 0.10 ng/mL (0.00-0.10) Test 08/05/21 12:08 08/05/21 17:16 08/05/21 21:43 08/06/21 07:32 Glucose (Fingerstick) 242 mg/dL (70-99) 262 mg/dL (70-99) 182 mg/dL (70-99) 197 mg/dL (70-99) Test 08/06/21 07:45 White Blood Count 8.2 x10^3/uL (4.0-11.0) Red Blood Count 4.14 x10^6/uL (3.50-5.40) Hemoglobin 12.1 g/dL (12.0-15.5) Hematocrit 35.9 % (36.0-47.0) Mean Corpuscular Volume 87 fL (79-100) Mean Corpuscular Hemoglobin 29 pg (25-35) Mean Corpuscular Hemoglobin Concent 34 g/dL (31-37) Red Cell Distribution Width 14.9 % (11.5-14.5) Platelet Count 358 x10^3/uL (140-400) Neutrophils (%) (Auto) 70 % (31-73) Lymphocytes (%) (Auto) 17 % (24-48) Monocytes (%) (Auto) 13 % (0-9) Eosinophils (%) (Auto) 0 % (0-3) Basophils (%) (Auto) 1 % (0-3) Neutrophils # (Auto) 5.7 x10^3/uL (1.8-7.7) Lymphocytes # (Auto) 1.4 x10^3/uL (1.0-4.8) Monocytes # (Auto) 1.0 x10^3/uL (0.0-1.1) Eosinophils # (Auto) 0.0 x10^3/uL (0.0-0.7) Basophils # (Auto) 0.0 x10^3/uL (0.0-0.2) Sodium Level 144 mmol/L (136-145) Potassium Level 3.4 mmol/L (3.5-5.1) Chloride Level 104 mmol/L (98-107) Carbon Dioxide Level 31 mmol/L (21-32) Anion Gap 9 (6-14) Blood Urea Nitrogen 8 mg/dL (7-20) Creatinine 0.7 mg/dL (0.6-1.0) Estimated GFR (Cockcroft-Gault) 99.5 Glucose Level 200 mg/dL (70-99) Calcium Level 8.8 mg/dL (8.5-10.1) Laboratory Tests Test 08/05/21 09:40 08/05/21 12:08 08/05/21 17:16 08/05/21 21:43 Ferritin 435 ng/mL (8-252) C-Reactive Protein, Quantitative 52.4 mg/L (0-3.3) Procalcitonin < 0.10 ng/mL (0.00-0.10) Glucose (Fingerstick) 242 mg/dL (70-99) 262 mg/dL (70-99) 182 mg/dL (70-99) Test 08/06/21 07:32 08/06/21 07:45 Glucose (Fingerstick) 197 mg/dL (70-99) White Blood Count 8.2 x10^3/uL (4.0-11.0) Red Blood Count 4.14 x10^6/uL (3.50-5.40) Hemoglobin 12.1 g/dL (12.0-15.5) Hematocrit 35.9 % (36.0-47.0) Mean Corpuscular Volume 87 fL (79-100) Mean Corpuscular Hemoglobin 29 pg (25-35) Mean Corpuscular Hemoglobin Concent 34 g/dL (31-37) Red Cell Distribution Width 14.9 % (11.5-14.5) Platelet Count 358 x10^3/uL (140-400) Neutrophils (%) (Auto) 70 % (31-73) Lymphocytes (%) (Auto) 17 % (24-48) Monocytes (%) (Auto) 13 % (0-9) Eosinophils (%) (Auto) 0 % (0-3) Basophils (%) (Auto) 1 % (0-3) Neutrophils # (Auto) 5.7 x10^3/uL (1.8-7.7) Lymphocytes # (Auto) 1.4 x10^3/uL (1.0-4.8) Monocytes # (Auto) 1.0 x10^3/uL (0.0-1.1) Eosinophils # (Auto) 0.0 x10^3/uL (0.0-0.7) Basophils # (Auto) 0.0 x10^3/uL (0.0-0.2) Sodium Level 144 mmol/L (136-145) Potassium Level 3.4 mmol/L (3.5-5.1) Chloride Level 104 mmol/L (98-107) Carbon Dioxide Level 31 mmol/L (21-32) Anion Gap 9 (6-14) Blood Urea Nitrogen 8 mg/dL (7-20) Creatinine 0.7 mg/dL (0.6-1.0) Estimated GFR (Cockcroft-Gault) 99.5 Glucose Level 200 mg/dL (70-99) Calcium Level 8.8 mg/dL (8.5-10.1) Microbiology 08/02/21 Urine Culture - Final, Complete Medications Current Medications Sodium Chloride 1,000 ml @ 1,000 mls/hr 1X ONCE IV Last administered on 08/02/21at 20:42; Start 08/02/21 at 20:00; Stop 08/02/21 at 20:59; Status DC Atorvastatin Calcium (Lipitor) 20 mg QHS PO Last administered on 08/05/21at 21:45; Start 08/02/21 at 21:00 Guaifenesin (Robitussin Dm) 10 ml QID PO Last administered on 08/06/21at 08:45; Start 08/03/21 at 13:00 Azithromycin (Zithromax) 500 mg 1X ONCE PO Last administered on 08/03/21at 12:12; Start 08/03/21 at 10:30; Stop 08/03/21 at 10:31; Status DC Azithromycin (Zithromax) 250 mg DAILY PO Last administered on 08/06/21at 08:46; Start 08/04/21 at 09:00; Stop 08/07/21 at 09:01 Acetaminophen (Tylenol) 650 mg PRN Q6HRS PRN PO MILD PAIN / TEMP > 100.3'F; Start 08/03/21 at 10:30 Enoxaparin Sodium (Lovenox 40mg Syringe) 40 mg Q24H SQ Last administered on 08/05/21at 09:49; Start 08/03/21 at 10:30 Sodium Chloride 1,000 ml @ 40 mls/hr Q24H IV Last administered on 08/04/21at 21:13; Start 08/03/21 at 10:45; Stop 08/05/21 at 10:03; Status DC Dexamethasone Sodium Phosphate (Decadron) 6 mg DAILY IVP Last administered on 08/06/21at 08:45; Start 08/04/21 at 11:00 Insulin Human Lispro (HumaLOG) 0-6 UNITS BG 300-39... TIDWMEALS SQ Last admi nistered on 08/04/21at 18:32; Start 08/04/21 at 12:00; Stop 08/05/21 at 10:03; Status DC Famotidine (Pepcid) 20 mg QHS PO Last administered on 08/05/21at 21:45; Start 08/04/21 at 21:00 Albuterol/ Ipratropium (Combivent Respimat 20-100 Mcg) 1 puff RTQID INH Last administered on 08/06/21at 08:45; Start 08/04/21 at 16:00 Perflutren Protein Type A Microsphe (Optison) 0.66 mg 1X ONCE IV ; Start 08/05/21 at 07:30; Stop 08/05/21 at 07:31; Status DC Insulin Human Lispro (HumaLOG) 0-6 UNITS BG 300-39... TIDWMEALS SQ Last administered on 08/05/21at 17:48; Start 08/05/21 at 12:00 Amlodipine Besylate (Norvasc) 5 mg DAILY PO Last administered on 08/06/21at 08:46; Start 08/05/21 at 11:00 Lactobacillus Rhamnosus (Culturelle) 1 cap BID PO Last administered on 08/06/21at 08:45; Start 08/05/21 at 21:00 Active Scripts Active Reported Pravastatin Sodium 80 Mg Tablet 1 Tab PO DAILY Vitals/I & O Vital Sign - Last 24 Hours 08/05/21 08/05/21 08/05/21 08/05/21 11:00 11:10 15:00 19:00 Temp 97.6 98.1 97.9 97.6 98.1 97.9 Pulse 79 81 75 83 Resp 20 20 20 B/P (MAP) 162/68 (99) 174/68 157/67 (97) 151/68 (95) Pulse Ox 92 91 91 O2 Delivery Nasal Cannula Room Air Room Air O2 Flow Rate 2.0 2.0 2.0 08/05/21 08/05/21 08/06/21 08/06/21 20:00 23:00 03:00 07:00 Temp 97.8 98.0 97.7 97.8 98.0 97.7 Pulse 75 84 69 Resp 20 20 18 B/P (MAP) 170/73 (105) 156/79 (104) 169/93 (118) Pulse Ox 95 93 93 O2 Delivery Room Air Room Air Room Air Room Air 08/06/21 08/06/21 08:00 08:46 Pulse 69 B/P (MAP) 169/93 O2 Delivery Room Air Intake and Output 08/05/21 08/05/21 08/06/21 15:00 23:00 07:00 Intake Total 200 ml 1000 ml Output Total 0 ml 0 ml Balance 200 ml 1000 ml 0 ml Justifications for Admission Other Justification MYRA GUALLPA MD Aug 06, 2021 09:30
[2021-08-06] MEDS ORDERED: GUAI5SYR PO (09:39)
[2021-08-06] MEDS ORDERED: DEXA4TAB PO (09:39)
[2021-08-06] MEDS ORDERED: FAMO20TA5 PO (09:39)
[2021-08-06] MEDS ORDERED: AMLO-186 PO (09:39)
--- NOTE | 2021-08-06 09:40 | DISCH ---
DISCHARGE INSTRUCTIONS Condition on Discharge Condition on Discharge: Stable Activity After Discharge Activity Instructions for Disc: Resume previous activity Diet after Discharge Diet after Discharge: Diabetic No Calorie Level Contacting the DR. after DC Call your doctor for: If your condition worsens Follow-Up Follow up with: dr. guallpa in 2 weeks Follow Up With: dr. castellanos in 3 weeks. will need cardiac stress test MYRA GUALLPA MD Aug 06, 2021 09:40
--- NOTE | 2021-08-06 09:45 | PDOC ---
Provider Note Date of Service: DATE: 08/06/21 TIME: 09:44 Provider Note discharge summary dictated # [id number] Justifications for Admission Other Justification MYRA GUALLPA MD Aug 06, 2021 09:45
--- NOTE | 2021-08-06 09:59 | NUR ---
SW following. Discussed with RN, discharge order for home with self care. RN advised no SW needs.
--- NOTE | 2021-08-06 10:08 | DS ---
DATE OF ANTICIPATED DISMISSAL: 08/06/2021 CONSULTANTS: Dr. Yunier Prado and Dr. Griffith. FINAL DIAGNOSES: 1. Near syncope, most likely secondary to dehydration, orthostatic hypotension. 2. Acute bronchitis. 3. COVID-19 viral infection. 4. Diabetes mellitus type 2 with steroid-induced hyperglycemia. 5. Hypertension. 6. Hyperlipidemia. 7. Severe protein calorie malnutrition. HOSPITAL COURSE: The patient is a 71-year-old -[place] female who did not receive COVID-19 vaccination with diabetes mellitus type 2, treated with diet; hypertension; hyperlipidemia, takes pravastatin, who had a near syncopal episode while she was in the kitchen, lasting less than a minute. She felt faint, but did not faint. She felt lightheaded and denies any chest pain, shortness of breath or palpitations. She went to the hospital. She notes she has had a cough since around [place] time. There has been no hemoptysis. Chest x-ray showed chronic interstitial disease. BNP was slightly elevated at 440. She was admitted to the hospital, seen by Dr. Yunier Prado for Infectious Disease, Dr. Griffith for Cardiology. She did not have any arrhythmias. She received IV hydration. She was diagnosed with COVID-19. She was placed in isolation, started on IV Decadron. She was weaned off of oxygen, currently on oxygen saturation. She has an oxygen saturation today of 93% on room air. She was on oxygen yesterday. Her cough is much better with Robitussin-DM q.i.d. She will continue with isolation. She was started on amlodipine for hypertension. Her steroid-induced hyperglycemia should resolve once she is off the Decadron in 2 more days. She did have an echocardiogram done today and the results are pending. She will have an outpatient stress test with Dr. Griffith who saw the patient in consultation. She will make an appointment to see Dr. Egan in 2 weeks and also make an appointment to see Dr. Griffith in 3 weeks. Her echocardiogram is pending. She will be dismissed on amlodipine 5 mg every day, Decadron 6 mg daily for 2 days, famotidine 20 mg at bedtime and also will be dismissed on Robitussin-DM 10 mL q.i.d. She will continue with isolation for at least another week, pravastatin 80 mg once a day. BOLIVAR DR: Anai TID: [id number]
[2021-08-06] MEDS: INSULIN LISPRO 300 UNITS/3 ML VIAL. SQ SCH (10:49)
[2021-08-06] MEDS: ENOXAPARIN 40 MG/0.4 ML SYRINGE. SQ SCH (10:50)
--- NOTE | 2021-08-06 11:14 | CARD ---
MR#: [id number] Date of Study: 08/06/2021 Ordering Physician: MYRA GUALLPA, Referring Physician: MYRA GUALLPA, Tech: Germaine Roger TAVO APPROVED REPORT EXAM: Two-dimensional and M-mode echocardiogram with Doppler and color Doppler. Other Information Quality : AverageHR: 72bpm Rhythm : NSR INDICATION Dyspnea RISK FACTORS Hypertension Obesity 2D DIMENSIONS RVDd4.1 (2.9-3.5cm)Left Atrium(2D)3.5 (1.6-4.0cm) IVSd1.2 (0.7-1.1cm)Aortic Root(2D)2.9 (2.0-3.7cm) LVDd3.9 (3.9-5.9cm)LVOT Diameter2.0 (1.8-2.4cm) PWd1.2 (0.7-1.1cm)LVDs2.0 (2.5-4.0cm) FS (%) 48.4 %SV52.9 ml LVEF(%)80.3 (>50%) Aortic Valve AoV Peak Derrick.174.1cm/sAoV VTI42.2cm AO Peak GR.12.1mmHgLVOT Peak Derrick.122.9cm/s AO Mean GR.5mmHgAVA (VMAX)2.29cm2 Mitral Valve MV E Llbxvsxs700.8cm/sMV DECEL [id number] MV A Mnhpljqh342.5cm/sE/A Ratio0.9 Pulmonary Valve PV Peak Qjircmhu308.6cm/s Tricuspid Valve TR P. Ghtrpznq312vq/sTR Peak Gr.25mmHg LEFT VENTRICLE The left ventricle is normal size. There is mild concentric left ventricular hypertrophy. The left ve ntricular systolic function is normal. Estimated Ejection fraction 55 to 60%. There is normal LV seg mental wall motion. Transmitral Doppler flow pattern is Grade I-abnormal relaxation pattern. RIGHT VENTRICLE The right ventricle is normal size. There is normal right ventricular wall thickness. The right ventr icular systolic function is normal. ATRIA The left atrium size is normal. The right atrium size is normal. The interatrial septum is intact wit h no evidence for an atrial septal defect or patent foramen ovale as noted on 2-D or Doppler imaging. AORTIC VALVE The aortic valve is normal in structure and function. Doppler and Color Flow revealed no significant aortic regurgitation. There is no significant aortic valvular stenosis. MITRAL VALVE The mitral valve is normal in structure and function. There is no evidence of mitral valve prolapse. There is no mitral valve stenosis. Doppler and Color-flow revealed mild mitral regurgitation. TRICUSPID VALVE The tricuspid valve is normal in structure and function. Doppler and Color Flow revealed mild tricusp id regurgitation. Estimated PAP 30 mmHg. There is no tricuspid valve stenosis. PULMONIC VALVE The pulmonary valve is normal in structure and function. Doppler and Color Flow revealed moderate pul diya valvular regurgitation. GREAT VESSELS The aortic root is normal in size. The ascending aorta is normal in size. The IVC is normal in size a nd collapses >50% with inspiration. PERICARDIAL EFFUSION There is no evidence of significant pericardial effusion. Critical Notification Critical Value: No <Conclusion> The left ventricular systolic function is normal. Estimated Ejection fraction 55 to 60%. There is normal LV segmental wall motion. Transmitral Doppler flow pattern is Grade I-abnormal relaxation pattern. Mild mitral regurgitation. Mild tricuspid regurgitation. Estimated PAP 30 mmHg. There is no evidence of significant pericardial effusion. Signed by : Rusty Griffith, Electronically Approved : 08/06/2021 11:13:31
--- NOTE | 2021-08-06 12:19 | NUR ---
Discharge Note: MICHELLE WYLIE J5 [place] Discharge instructions and discharge home medications reviewed with Patient and a copy given. All questions have been answered and understanding verbalized. The following instructions and handouts were given: worsening symptoms, medications, follow up information, and COVID education Discontinued lines and drains: IV discontinued from Rt forearm, telemetry discontinued intact. Patient discharged to home with self care, accompanied by family via personal vehicle. All personal belongings sent with patient.
[2021-08-07] MEDS ORDERED: DEXAMETHASONE 4 MG TABLET PO SCH (08:00)
== END 2021-08-06 11:30 | disposition home or self-care (01) | DRG 177 ==
LOC: ER 14:47 → 5 NORTH 20:40
PROVIDERS: ADMIT Internal Medicine; ATTEND Internal Medicine
DX: U07.1 COVID-19 (principal); E43 Unspecified severe protein-calorie malnutrition; J12.82 Pneumonia due to coronavirus disease 2019; J20.9 Acute bronchitis, unspecified; E11.65 Type 2 diabetes mellitus with hyperglycemia; E66.9 Obesity, unspecified; E78.00 Pure hypercholesterolemia, unspecified; E78.5 Hyperlipidemia, unspecified; E86.0 Dehydration; E86.1 Hypovolemia; I11.0 Hypertensive heart disease with heart failure; I25.10 Atherosclerotic heart disease of native coronary artery without angina pectoris; I50.9 Heart failure, unspecified; I95.1 Orthostatic hypotension; J20.8 Acute bronchitis due to other specified organisms; T38.0X5A Adverse effect of glucocorticoids and synthetic analogues, initial encounter; Z78.9 Other specified health status; Z79.899 Other long term (current) drug therapy; Z82.49 Family history of ischemic heart disease and other diseases of the circulatory system; Z85.41 Personal history of malignant neoplasm of cervix uteri; Z86.73 Personal history of transient ischemic attack (TIA), and cerebral infarction without residual deficits; Z87.891 Personal history of nicotine dependence; Z90.49 Acquired absence of other specified parts of digestive tract; Z92.3 Personal history of irradiation; Z68.31 Body mass index [BMI] 31.0-31.9, adult; Z88.8 Allergy status to other drugs, medicaments and biological substances
CPT/HCPCS: 36415; 71045; 71250; 80048; 80053; 80061; 81001; 82728; 82962; 83036; 83880; 84145; 84484; 85025; 86140; 87086; 87426; 93005; 93306; 96360; J1100; J1650; J1815; J3490; J7030; 99285-25; G0378